=== PATIENT | female | born 1955 | race Caucasian/White ===

== ENCOUNTER → 2016-11-10 | Outpatient (CLI) | payer MEDICARE, OTHER ==
[2016-11-10 11:37] LABS: ALT 39 U/L (9-52); AST 18 U/L (14-36); Alkaline Phosphatase 76 U/L (38-126); Anion Gap 13 mmol/L; Blood Urea Nitrogen 14 mg/dL (7-17); Carbon Dioxide 26 mmol/L (22-30); Chloride 103 mmol/L (98-107); Cholesterol 293 mg/dL (<200); Glucose 246 mg/dL (74-99); HDL Cholesterol 53 mg/dL (40-60); Non-African American GFR(MDRD) >60 (>60 ml/min/1.73 sqM); Potassium 4.8 mmol/L (3.5-5.1); Sodium 142 mmol/L (137-145); Total Bilirubin 0.5 mg/dL (0.2-1.3); Total Protein 7.8 g/dL (6.3-8.2); Triglycerides 352 mg/dL (<150)
--- NOTE | 2016-11-10 12:12 | XR ---
EXAMINATION TYPE: XR chest 2V DATE OF EXAM: 11/10/2016 11:22 AM COMPARISON: Prior chest x-ray February 01, 2012. HISTORY: Annual wellness check (Z00.01) TECHNIQUE: Frontal and lateral views of the chest are obtained. FINDINGS: There is no focal air space opacity, pleural effusion, or pneumothorax seen. The cardiac silhouette size is within normal limits. The osseous structures are intact. Cholecystectomy clips a re noted on lateral view. IMPRESSION: No acute cardiopulmonary process. No significant change from prior.
[2016-11-10 14:21] LABS: CHCM 34.3; HCT 46.4 % (34.0-46.0); HDW 2.75; HGB 15.6 gm/dL (11.4-16.0); MCH 31.5 pg (25.0-35.0); MCHC 33.5 g/dL (31.0-37.0); MCV 93.8 fL (80.0-100.0); Mean Platelet Volume 7.4; RBC 4.95 m/uL (3.80-5.40); RDW 12.9 % (11.5-15.5)
[2016-11-10 14:44] LABS: Hemoglobin A1C 8.6 % (4.2-6.1)
== END | disposition home or self-care (01) ==
LOC: LABWHC1 10:35
PROVIDERS: ATTEND Internal Medicine
DX: Z00.01 Encounter for general adult medical examination with abnormal findings (principal); I11.9 Hypertensive heart disease without heart failure; E11.9 Type 2 diabetes mellitus without complications; E78.2 Mixed hyperlipidemia; K21.0 Gastro-esophageal reflux disease with esophagitis
CPT/HCPCS: 36415; 71020; 80053; 80061; 82043; 83036; 85027

== ENCOUNTER → 2017-02-01 | Outpatient (CLI) | payer MEDICARE, OTHER ==
[2017-02-01 11:47] LABS: Cholesterol 172 mg/dL (<200); Glucose 235 mg/dL (74-99); HDL Cholesterol 53 mg/dL (40-60); Triglycerides 217 mg/dL (<150)
[2017-02-01 12:10] LABS: Hemoglobin A1C 8.5 % (4.2-6.1)
== END | disposition home or self-care (01) ==
LOC: LABWHC1 11:09
PROVIDERS: ATTEND Internal Medicine
DX: E78.2 Mixed hyperlipidemia (principal); E11.9 Type 2 diabetes mellitus without complications
CPT/HCPCS: 36415; 80061; 82947; 83036

== ENCOUNTER → 2018-01-18 | Outpatient (CLI) | payer MEDICARE, OTHER ==
--- NOTE | 2018-01-18 12:01 | XR ---
EXAMINATION TYPE: XR chest 2V DATE OF EXAM: 01/18/2018 COMPARISON: November 10, 2016 HISTORY: Chest pain TECHNIQUE: Frontal and lateral views of the chest are obtained. FINDINGS: There is no focal air space opacity. No evidence for pneumothorax. No pleural effusion. The cardiac silhouette size is within normal limits. The osseous structures are grossly intact. IMPRESSION: 1. No acute cardiopulmonary process.
[2018-01-18 12:34] LABS: Albumin 4.4 g/dL (3.5-5.0); Calcium 9.7 mg/dL (8.4-10.2); Potassium 5.3 mmol/L (3.5-5.1); Total Bilirubin 0.3 mg/dL (0.2-1.3); Total Protein 6.9 g/dL (6.3-8.2)
[2018-01-18 12:48] LABS: T4, Free (Free Thyroxine) 1.13 ng/dL (0.78-2.19)
[2018-01-18 18:34] LABS: Hemoglobin A1C 10.2 % (4.0-6.0)
[2018-01-18 21:49] LABS: HCT 39.2 % (34.0-46.0); MCH 30.5 pg (25.0-35.0); MCHC 33.1 g/dL (31.0-37.0); MCV 92.1 fL (80.0-100.0); Mean Platelet Volume 8.1; Platelet Count 227 k/uL (150-450); RBC 4.25 m/uL (3.80-5.40); RDW 12.9 % (11.5-15.5); WBC 4.8 k/uL (3.8-10.6)
== END | disposition home or self-care (01) ==
LOC: LABWHC1 11:12
PROVIDERS: ATTEND Internal Medicine
DX: Z00.01 Encounter for general adult medical examination with abnormal findings (principal); E11.9 Type 2 diabetes mellitus without complications; I11.9 Hypertensive heart disease without heart failure; K21.0 Gastro-esophageal reflux disease with esophagitis; E78.2 Mixed hyperlipidemia
CPT/HCPCS: 36415; 71046; 80053; 80061; 82043; 82272; 82570; 83036; 84439; 84443; 85027

== ENCOUNTER → 2020-03-27 | Outpatient (CLI) | payer MEDICARE, OTHER ==
[2020-03-27 11:16] VITALS: BP 135/67; PULSE 62; RESP 20; TEMP 97.8
--- NOTE | 2020-03-27 11:59 | P.GSHP ---
History of Present Illness H&P Date: 03/27/20 Chief Complaint: Radiographic abnormality left breast Nellie is a 65 year old white female seen in consultation for Dr. Blanca for a radiographic abnormality in the left breast. The patient had a bilateral screening mammogram performed in October 2019 at [facility]. This revealed stable findings in the right breast, however diagnostic mammogram of the left breast was recommended. Diagnostic mammogram of the left breast was performed on . This resulted in the recommendation for an ultrasound of the left breast. The ultrasound of the left breast was then performed on the same day. On this there was noted to be a 1.2 cm lesion in the long axis of the lesion was parallel to the skin line and felt to be benign for which a short-term follow-up left breast mammogram and ultrasound was recommended. The patient herself does not feel any masses lumps nodules or pain in the breast. She is not complaining of any nipple discharge or skin changes. She is not complaining of any recent trauma or infection in the breast. She had a left breast open biopsy done about 35 years ago which was negative for cancer. Dianne 5 year risk of breast cancer 3.5% versus 1.9% life time risk: 14.2 % versus 8.3% caffeine: 2-3 cups/day nicotine: none Theophylline: Negative Hormones: Negative Family history: mother: breast cancer at 65 sister: cervical cancer maternal cousin: ovarian cancer maternal cousin: colon cancer Hormonal History: menarche: 15 age at first : 20, breast fed: none menopause: 47 BCP: 1 week hormones: none Surgical history: 1. Partial hysterectomy at 37, took uterus 2. tubaligation 3. knee right times 2 4. fingers trigger fingers 5 cyst on her left wrist 6. cataract surgery Medical History: DM Social History smoke: none alcohol: none' drugs: none - Constitutional Constitutional: Denies chills, Denies fever - EENT Comment: cataract surgery Ears: deny: decreased hearing, tinnitus Ears, nose, mouth and throat: Denies headache, Denies sore throat - Breasts Breasts: bilateral: as per HPI - Cardiovascular Cardiovascular: Denies chest pain, Denies shortness of breath - Respiratory Respiratory: Denies cough, Denies 7 - Gastrointestinal Gastrointestinal: Denies abdominal pain, Denies diarrhea, Denies nausea, Denies vomiting - Genitourinary (Female) Genitourinary: Denies dysuria, Denies hematuria - Menstruation Menstruation: Reports post hysterectomy, Reports postmenopausal - Musculoskeletal Musculoskeletal: Reports muscle cramps - Integumentary Integumentary: Denies pruritus, Denies rash - Neurological Neurological: Denies numbness, Denies weakness - Psychiatric Psychiatric: Reports depression - Endocrine Endocrine: Denies fatigue, Denies weight change - Hematologic/Lymphatic Comment: aspirin every morning - Allergic/Immunologic Comment: none Allergic/Immunologic: Reports as per HPI Past Medical History History of Any Multi-Drug Resistant Organisms: None Reported Smoking Status: Never smoker Medications and Allergies Home Medications Medication Instructions Recorded Confirmed Type Cyclobenzaprine [Flexeril] 10 mg PO BID 03/27/20 03/27/20 History Diclofenac Sodium [Voltaren] 75 mg PO BID 03/27/20 03/27/20 History Gabapentin [Neurontin] 400 mg PO TID 03/27/20 03/27/20 History Glimepiride [Amaryl] 2 mg PO AC-BRKFST 03/27/20 03/27/20 History HYDROcodone/APAP 7.5-325MG [Ridge 1 tab PO Q6HR PRN 03/27/20 03/27/20 History 7.5-325] Meloxicam 15 mg PO DAILY 03/27/20 03/27/20 History metFORMIN HCL [Glucophage] 500 mg PO DAILY 03/27/20 03/27/20 History Allergies Allergy/AdvReac Type Severity Reaction Status Date / Time No Known Allergies Allergy Unverified 03/27/20 11:16 Surgical - Exam Vital Signs Temp Pulse Resp BP Pulse Ox 97.8 F 62 20 135/67 97 03/27/20 11:12 03/27/20 11:12 03/27/20 11:12 03/27/20 11:12 03/27/20 11:12 BMI 36.6 - General obese - Eyes normal ocular movement - ENT no hearing loss, no congestion - Neck no masses, trachea midline - Respiratory normal expansion, normal respiratory effort, clear to auscultation - Cardiovascular Rhythm: regular Heart Sounds: normal: S1, S2 - Abdomen Abdomen: soft, non tender, bowel sounds, no guarding, no rigid, no rebound - Integumentary normal turgor - Neurologic no disoriented, no combative - Musculoskeletal normal gait, normal posture - Psychiatric oriented to time, oriented to person, oriented to place, speech is normal, memory intact breast exam: BRA 42C Inspection: Bilateral grade 3 ptosis, right breast larger than the left breast Palpation: Right breast: Multi-positional exam fibrocystic changes, no dominant masses or nodules of concern Right axilla: No adenopathy of concern Left breast: Multi-positional exam but were cystic changes, no dominant masses or nodules of concern nothing is palpable which would correspond to the ultrasound findings Left axilla: No adenopathy of concern Results Mammogram and ultrasound reports reviewed with DR. Harvey Assessment and Plan Assessment: Impression: 1. Radiographic abnormality left breast 2. Fibrocystic changes bilaterally 3. Diabetes 4. Family history of cancer 5. Dianne model risk analysis reveals increased risk of breast cancer; we have discussed chemo-prevention and at this time she has chosen not to do so Plan: 1. Repeat left breast mammogram and ultrasound in May 2020 2. Follow-up. After mammogram and ultrasound performed 3. Follow up sooner if any questions or concerns 4. Patient was given option is seen medical oncology regarding increased risk of breast cancer/at this time she has chosen not to do so CC: Dr. Blanca encounter 60 minutes, > 50% of time in planning and counselling
== END | disposition home or self-care (01) ==
LOC: WWCWWP 10:58
PROVIDERS: ATTEND Surgery
DX: Z53.9 Procedure and treatment not carried out, unspecified reason (principal)

== ENCOUNTER → 2020-06-12 | Outpatient (CLI) | payer MEDICARE, OTHER ==
--- NOTE | 2020-06-12 16:07 | P.PN ---
Progress Note - Text Progress Note Date: 06/12/20 We did not have the patient's films nor her report, she is coming for radiographic results. Appointment is therefore canceled to obtain the x-rays and the report is going to be rescheduled.
== END | disposition home or self-care (01) ==
LOC: WWCWWP 15:17
PROVIDERS: ATTEND Surgery
DX: Z53.9 Procedure and treatment not carried out, unspecified reason (principal)

== ENCOUNTER → 2020-07-10 | Outpatient (CLI) | payer MEDICARE, OTHER ==
[2020-07-10 14:00] VITALS: BP 137/79; PULSE 58; RESP 12; TEMP 97.5
--- NOTE | 2020-07-10 14:14 | P.PN ---
Subjective Progress Note Date: 07/10/20 Principal diagnosis: abnormal left breast mammogram Nellie is a 65 year old white female seen in consultation for Dr. Blanca on 03-27-20 for a radiographic abnormality in the left breast. The patient had a bilateral screening mammogram performed in October 2019 at [facility]. This revealed stable findings in the right breast, however diagnostic mammogram of the left breast was recommended. Diagnostic mammogram of the left breast was performed on . This resulted in the recommendation for an ultrasound of the left breast. The ultrasound of the left breast was then performed on the same day. On this there was noted to be a 1.2 cm lesion in the long axis of the lesion was parallel to the skin line and felt to be benign for which a short-term follow-up left breast mammogram and ultrasound was recommended. The patient herself does not feel any masses lumps nodules or pain in the breast. She is not complaining of any nipple discharge or skin changes. She is not complaining of any recent trauma or infection in the breast. She had a left breast open biopsy done about 35 years ago which was negative for cancer. Patient had a bilateral repeat mammogram in . This was felt to be benign finding normal interval follow-up. Although was recommended she have an ultrasound of the left breast as well this was not yet performed and this will be ordered today. The patient does state that she has some intermittent left upper outer quadrant breast discomfort. This is occasional. She states is better if she lays still. It does not radiate anyplace. She states that the pain is dull in nature. It only lasts for 1-2 minutes. It occurs about every other week. Dianne 5 year risk of breast cancer 3.5% versus 1.9% life time risk: 14.2 % versus 8.3% caffeine: 2-3 cups/day; no change in amount drinking from last visit nicotine: none Theophylline: Negative Hormones: Negative Family history: mother: breast cancer at 65 sister: cervical cancer maternal cousin: ovarian cancer maternal cousin: colon cancer Hormonal History: menarche: 15 age at first : 20, breast fed: none menopause: 47 BCP: 1 week hormones: none Surgical history: 1. Partial hysterectomy at 37, took uterus 2. tubaligation 3. knee right times 2 4. fingers trigger fingers 5 cyst on her left wrist 6. cataract surgery Medical History: DM Social History smoke: none alcohol: none' drugs: none - Constitutional Constitutional: Denies chills, Denies fever - EENT Comment: cataract surgery Ears: deny: decreased hearing, tinnitus Ears, nose, mouth and throat: Denies headache, Denies sore throat - Breasts Breasts: bilateral: as per HPI - Cardiovascular Cardiovascular: Denies chest pain, Denies shortness of breath - Respiratory Respiratory: Denies cough - Gastrointestinal Gastrointestinal: Denies abdominal pain, Denies diarrhea, Denies nausea, Denies vomiting - Genitourinary (Female) Genitourinary: Denies dysuria, Denies hematuria - Menstruation Menstruation: Reports post hysterectomy, Reports postmenopausal - Musculoskeletal Musculoskeletal: Reports muscle cramps - Integumentary Integumentary: Denies pruritus, Denies rash - Neurological Neurological: Denies numbness, Denies weakness - Psychiatric Psychiatric: Reports depression - Endocrine Endocrine: Denies fatigue, Denies weight change - Hematologic/Lymphatic Comment: aspirin every morning - Allergic/Immunologic Comment: none Allergic/Immunologic: Reports as per HPI Objective - Vital Signs Vital signs: Vital Signs Temp 97.5 F L 07/10/20 13:56 Pulse 58 L 07/10/20 13:56 Resp 12 07/10/20 13:56 BP 137/79 07/10/20 13:56 Pulse Ox 97 07/10/20 13:56 Intake & Output 07/09/20 07/10/20 07/10/20 18:59 06:59 18:59 Weight 104.78 kg - Exam BMI 36.2 - Constitutional General appearance: Present: obese - EENT Eyes: Present: EOMI ENT: Present: hearing grossly normal - Neck Neck: Present: normal ROM - Respiratory Respiratory: bilateral: CTA - Cardiovascular Rhythm: regular Heart sounds: normal: S1, S2 - Gastrointestinal General gastrointestinal: Present: soft - Integumentary Integumentary: Present: normal turgor - Musculoskeletal Musculoskeletal: Present: gait normal - Psychiatric Psychiatric: Present: A&O x's 3, appropriate affect, intact judgment & insight - Additional findings Additional findings: breast exam: BRA 42C inspection: Bilateral grade 3 ptosis Palpation: Right breast: Multi-positional exam fibrocystic changes, no dominant masses or nodules of concern Right axilla: No adenopathy of concern Left breast: Multi-positional exam no dominant masses or nodules of concern Left axilla: No adenopathy of concern Assessment and Plan Assessment: Impression: 1. Fibrocystic breast changes 2. Recent bilateral mammogram benign BIRADS 2 3. Patient recommended to have a left breast ultrasound as well 4. History of diabetes 5. Intermittent mastodynia left breast upper outer quadrant area Plan: 1. Left breast ultrasound follow-up for results of this 2. Again discussed Doppler in the caffeine which may improve fibrocystic breast changes 3. Medical management of diabetes CC: DR. Blanca encounter 15 minutes, > 50% of time in planning and counselling
== END | disposition home or self-care (01) ==
LOC: WWCWWP 13:13
PROVIDERS: ATTEND Surgery
DX: Z53.9 Procedure and treatment not carried out, unspecified reason (principal)

== ENCOUNTER → 2020-07-28 | Outpatient (CLI) | payer MEDICARE, OTHER ==
--- NOTE | 2020-07-29 08:29 | USB ---
Reason for exam: additional evaluation requested from prior study. History: Family history of breast cancer in mother. Benign excisional biopsy of the left breast, 1994. Physical Findings: Nurse did not find any significant physical abnormalities on exam. US Breast LT Prior study comparison: November 19, 2019, left breast ultrasound, performed at [facility]. Left complete breast ultrasound includes all four quadrants, the retroareolar region and axilla. Finding demonstrates a 1.4 x 1.2 x 0.8cm oval, cystic, hypoechoic lesion at 1 o'clock, probable thin walled cyst. No change from outside ultrasound. These results were verbally communicated with the patient and result sheet given to the patient on 07/28/20. ASSESSMENT: Benign, BI-RAD 2 RECOMMENDATION: Routine screening mammogram of both breasts in 10 months. Back on schedule for May 2021.
== END | disposition home or self-care (01) ==
LOC: RADUSWWP 14:01
PROVIDERS: ATTEND Surgery
DX: R92.8 Other abnormal and inconclusive findings on diagnostic imaging of breast (principal)

== ENCOUNTER → 2020-07-31 | Outpatient (CLI) | payer MEDICARE, OTHER ==
[2020-07-31 14:58] VITALS: BP 148/69; PULSE 61; RESP 18; TEMP 98.1
--- NOTE | 2020-07-31 15:46 | P.PN ---
Subjective Progress Note Date: 07/31/20 Principal diagnosis: ultrasound results abnormal left breast mammogram Nellie is a 65 year old white female seen in consultation for Dr. Blanca on 03-27-20 for a radiographic abnormality in the left breast. The patient had a bilateral screening mammogram performed in October 2019 at [facility]. This revealed stable findings in the right breast, however diagnostic mammogram of the left breast was recommended. Diagnostic mammogram of the left breast was performed on . This resulted in the recommendation for an ultrasound of the left breast. The ultrasound of the left breast was then performed on the same day. On this there was noted to be a 1.2 cm lesion in the long axis of the lesion was parallel to the skin line and felt to be benign for which a short-term follow-up left breast mammogram and ultrasound was recommended. The patient herself does not feel any masses lumps nodules or pain in the breast. She is not complaining of any nipple discharge or skin changes. She is not complaining of any recent trauma or infection in the breast. She had a left breast open biopsy done about 35 years ago which was negative for cancer. [place] [id number]. This was felt to be benign finding normal interval follow-up. An ultrasound of the left breast was recommended and was performed on . This revealed a 1.4 cm cystic hypoechoic lesion at 1:00 probable thin-walled cyst. No change from outside ultrasound. This was felt to be benign BIRADS 2. Routine screening mammogram of both breasts in 10 months was recommended. She does not feel any lumps masses or nodules in her breast at this time. Dianne 5 year risk of breast cancer 3.5% versus 1.9% life time risk: 14.2 % versus 8.3% caffeine: 2-3 cups/day; no change in amount drinking from last visit nicotine: none Theophylline: Negative Hormones: Negative Family history: mother: breast cancer at 65 sister: cervical cancer maternal cousin: ovarian cancer maternal cousin: colon cancer Hormonal History: menarche: 15 age at first : 20, breast fed: none menopause: 47 BCP: 1 week hormones: none Surgical history: 1. Partial hysterectomy at 37, took uterus 2. tubaligation 3. knee right times 2 4. fingers trigger fingers 5 cyst on her left wrist 6. cataract surgery Medical History: DM Social History smoke: none alcohol: none' drugs: none - Constitutional Constitutional: Denies chills, Denies fever - EENT Comment: cataract surgery Ears: deny: decreased hearing, tinnitus Ears, nose, mouth and throat: Denies headache, Denies sore throat - Breasts Breasts: bilateral: as per HPI - Cardiovascular Cardiovascular: Denies chest pain, Denies shortness of breath - Respiratory Respiratory: Denies cough - Gastrointestinal Gastrointestinal: Denies abdominal pain, Denies diarrhea, Denies nausea, Denies vomiting - Genitourinary (Female) Genitourinary: Denies dysuria, Denies hematuria - Menstruation Menstruation: Reports post hysterectomy, Reports postmenopausal - Musculoskeletal Musculoskeletal: Reports muscle cramps - Integumentary Integumentary: Denies pruritus, Denies rash - Neurological Neurological: Denies numbness, Denies weakness - Psychiatric Psychiatric: Reports depression - Endocrine Endocrine: Denies fatigue, Denies weight change - Hematologic/Lymphatic Comment: aspirin every morning Objective - Vital Signs Vital signs: Vital Signs Temp 98.1 F 07/31/20 14:56 Pulse 61 07/31/20 14:56 Resp 18 07/31/20 14:56 BP 148/69 07/31/20 14:56 Pulse Ox 97 07/31/20 14:56 Intake & Output 07/30/20 07/31/20 07/31/20 18:59 06:59 18:59 Weight 106.594 kg - [place]am [place] [id number], it is not repeated today Assessment and Plan Assessment: Impression: 1. Fibrocystic breast changes 2. Recent bilateral mammogram benign BIRADS 2, left breast ultrasound on 1020 720 benign BIRADS 2 with cystic changes 3. History of diabetes 4. Intermittent mastodynia left breast Plan: 1. Bilateral mammogram in 10 months with physician exam at that time
== END | disposition home or self-care (01) ==
LOC: WWCWWP 14:09
PROVIDERS: ATTEND Surgery
DX: Z53.9 Procedure and treatment not carried out, unspecified reason (principal)

== ENCOUNTER → 2021-07-23 | Outpatient (CLI) | payer MEDICARE, OTHER ==
[2021-07-23 16:23] VITALS: BP 161/87; PULSE 63; RESP 18; TEMP 97.8
--- NOTE | 2021-07-23 16:25 | P.PN ---
Subjective Progress Note Date: 07/23/21 Principal diagnosis: fibrocystic breast disease Nellie is a 66 year old white female seen in consultation for Dr. Blanca for a radiographic abnormality in the left breast. The patient had a bilateral screening mammogram performed in October 2019 at [facility]. This revealed stable findings in the right breast, however diagnostic mammogram of the left breast was recommended. Diagnostic mammogram of the left breast was performed on . This resulted in the recommendation for an ultrasound of the left breast. The ultrasound of the left breast was then performed on the same day. On this there was noted to be a 1.2 cm lesion in the long axis of the lesion was parallel to the skin line and felt to be benign for which a short-term follow-up left breast mammogram and ultrasound was recommended. Her most recent mammogram was at [facility] on [id number] this was benign BIRADS 2. The patient herself does not feel any masses lumps nodules or pain in the breast. She is not complaining of any nipple discharge or skin changes. She is not complaining of any recent trauma or infection in the breast. She had a left breast open biopsy done about 35 years ago which was negative for cancer. Dianne 5 year risk of breast cancer 3.5% versus 1.9% life time risk: 14.2 % versus 8.3% caffeine: 2-3 cups/day nicotine: none chocolate: occasional Hormones: Negative Family history: mother: breast cancer at 65 sister: cervical cancer maternal cousin: ovarian cancer maternal cousin: colon cancer Hormonal History: menarche: 15 age at first : 20, breast fed: none menopause: 47 BCP: 1 week hormones: none Surgical history: 1. Partial hysterectomy at 37, took uterus 2. tubaligation 3. knee right times 2 4. fingers trigger fingers 5 cyst on her left wrist 6. cataract surgery Medical History: DM Social History smoke: none alcohol: none' drugs: none - Constitutional Constitutional: Denies chills, Denies fever - EENT Comment: cataract surgery Ears: deny: decreased hearing, tinnitus Ears, nose, mouth and throat: Denies headache, Denies sore throat - Breasts Breasts: bilateral: as per HPI - Cardiovascular Cardiovascular: Denies chest pain, Denies shortness of breath - Respiratory Respiratory: Denies cough - Gastrointestinal Gastrointestinal: Denies abdominal pain, Denies diarrhea, Denies nausea, Denies vomiting - Genitourinary (Female) Genitourinary: Denies dysuria, Denies hematuria - Menstruation Menstruation: Reports post hysterectomy, Reports postmenopausal - Musculoskeletal Musculoskeletal: Reports muscle cramps - Integumentary Integumentary: Denies pruritus, Denies rash - Neurological Neurological: Denies numbness, Denies weakness - Psychiatric Psychiatric: Reports depression - Endocrine Endocrine: Denies fatigue, Denies weight change - Hematologic/Lymphatic Comment: aspirin every morning - Allergic/Immunologic Comment: none Allergic/Immunologic: Reports as per HPI Objective - Constitutional General appearance: Present: cooperative - EENT Eyes: Present: EOMI ENT: Present: hearing grossly normal - Neck Neck: Present: normal ROM - Respiratory Respiratory: bilateral: CTA - Cardiovascular Heart sounds: normal: S1, S2 - Gastrointestinal General gastrointestinal: Present: soft - Integumentary Integumentary: Present: normal turgor - Musculoskeletal Musculoskeletal: Present: gait normal - Psychiatric Psychiatric: Present: A&O x's 3, appropriate affect, intact judgment & insight - Additional findings Additional findings: Breast Exam: BRA: 42C inspection: Bilateral grade 3 ptosis Palpation: Right breast: Multi-positional exam fibrocystic changes no dominant masses or nodules of concern Right axilla: No adenopathy of concern Left breast: Multi-positional exam fibrocystic changes no dominant masses or nodules of concern Left axilla: No adenopathy of concern Assessment and Plan Assessment: Impression: Fibrocystic breast changes bilateral Positive family history of cancer Benign BIRADS 2 [place] [id number] Plan: Repeat bilateral mammogram in 1 year with physician exam at that time
== END ==
LOC: WWCWWP 16:13
PROVIDERS: ATTEND Surgery
DX: N60.11 Diffuse cystic mastopathy of right breast (principal); N60.12 Diffuse cystic mastopathy of left breast; E11.9 Type 2 diabetes mellitus without complications; Z80.3 Family history of malignant neoplasm of breast

== ENCOUNTER → 2022-07-14 | Outpatient (CLI) | payer MEDICARE, OTHER ==
--- NOTE | 2022-07-14 19:24 | BD ---
EXAMINATION TYPE: Axial Bone Density DATE OF EXAM: 07/14/2022 COMPARISON: NONE CLINICAL HISTORY: 67 year old Female. ICD-10 CODE: Z13.820 screening M85.80 other bone disorder Height: 65 Weight: 213.4 FRAX RISK QUESTIONS: Alcohol (3 or more units per day): no Family History (Parent hip fracture): no Glucocorticoids (More than 3mos): no (Ex: prednisone, prednisolone, methylprednisolone, dexamethasone, and hydrocortisone). History of Fracture in Adulthood: yes Secondary Osteoporosis: 1. Type 1 Diabetes: no 2. Hyperthyroidism: no 3. Menopause before 45: no 4. Malnutrition: no 5. Chronic liver disease: no Rheumatoid Arthritis: yes Current Tobacco Use: no RISK FACTORS HISTORY OF: History of Wrist Fracture: right wrist When: as a child Surgery to Spine/Hip(right/left)/Wrist (right/left): no Family History of Osteoporosis: yes Active: no Diet low in dairy products/other sources of calcium: yes Postmenopausal woman: yes Lost more than 2 inches in height since high school: yes MEDICATIONS: Additional History: EXAM MEASUREMENTS: Bone mineral densitometry was performed using the VSoft System. Bone mineral density as measured about the Lumbar spine is: ----- L1-L4(G/cm2): 1.074 T Score Values are as follows: ----- L1: -2.1 ----- L2: -1.2 ----- L3: -0.5 ----- L4: 0.0 ----- L1-L4: -0.9 Bone mineral density : baseline Bone mineral density about the R hip (g/cm2): 0.737 Bone mineral density about the L hip (g/cm2): 0.805 T Score values are as follows: -----R Neck: -2.2 -----L Neck: -1.7 -----R Total: -1.7 -----L Total: -1.4 Bone mineral density : baseline FRAX%s: The graph provided illustrates a 22.3% chance for a major osteoporotic fx and a 4.1% chance f or the hips probability for fx in 10 years time. IMPRESSION: Osteopenia (T Score between -2.5 and -1). There is slightly increased risk of fracture and the patient may be considered for treatment. Re-Screen 2-5 years. NOTE: T-SCORE=SD OF THE YOUNG ADULT MEAN.
== END | disposition home or self-care (01) ==
LOC: RADBDWWP 12:08
PROVIDERS: ATTEND Obstetrics & Gynecology
DX: M85.89 Other specified disorders of bone density and structure, multiple sites (principal); Z78.0 Asymptomatic menopausal state
CPT/HCPCS: 77080

== ENCOUNTER → 2022-07-14 | Outpatient (CLI) | payer MEDICARE, OTHER ==
--- NOTE | 2022-07-15 11:33 | MM ---
Reason for Exam: Screening (asymptomatic). Last mammogram was performed 2 year(s) and 2 month(s) ago. Patient History: Menarche at age 15. First Full-Term at age 19. Postmenopausal. 1994, Benign Excisional Biopsy on the left side. Mother had breast cancer under age 50. Risk Values: Dianne 5 year model risk: 3.6%. NCI Lifetime model risk: 13.3%. Prior Study Comparison: 07/24/2018 Screening Mammogram, [facility]. 10/16/2019 Screening Mammogram, [facility]. 11/19/2019 Screening Mammogram, [facility]. 05/21/2020 Screening Mammogram, [facility]. Tissue Density: The breast tissue is heterogeneously dense. This may lower the sensitivity of mammography. Findings: Analyzed By CAD. Asymmetric density superior right MLO view middle to posterior depth is more defined and persists on 3 images. Possible superimposition shadow but further evaluation is recommended. Asymmetric density central outer right cc view middle to posterior depth suspected superimposition shadow as it is not as well-seen on the laterally exaggerated CC view. This area can also be further evaluated. Subtle areas of low density to isodense nodularity in both breasts remain unchanged. Low axillary tail lymph node on the left remains unchanged. Overall Assessment: Incomplete: need additional imaging evaluation, BI-RAD 0 Management: Special View Mammogram of the right breast. Diagnostic Breast Ultrasound of the right breast. Special views to include spot 3-D CC, 3-D CC rolled medial, spot 3-D MLO, and 3-D ML views. Targeted ultrasound upper outer quadrant right breast. [facility] will attempt to contact patient to return for supplemental views and ultrasound if indicated. Electronically signed and approved by: Rahul De Los Santos M.D. Radiologist
== END | disposition home or self-care (01) ==
LOC: RADMAMWWP 12:10
PROVIDERS: ATTEND Surgery
DX: Z12.31 Encounter for screening mammogram for malignant neoplasm of breast (principal); Z78.0 Asymptomatic menopausal state; Z80.3 Family history of malignant neoplasm of breast
CPT/HCPCS: 77063; 77067

== ENCOUNTER → 2022-07-21 | Outpatient (CLI) | payer MEDICARE, OTHER ==
--- NOTE | 2022-07-21 13:57 | MM ---
Reason for Exam: Additional evaluation requested from abnormal screening. Last screening mammogram was performed less than 1 month ago. Patient History: Menarche at age 15. First Full-Term at age 19. Postmenopausal. 1994, Benign Excisional Biopsy on the left side. Mother had breast cancer under age 50. Risk Values: Dianne 5 year model risk: 3.6%. NCI Lifetime model risk: 13.3%. Tissue Density: Right: The breast tissue is heterogeneously dense. This may lower the sensitivity of mammography. Findings: Analyzed By CAD. No distinct new lesion definitively persists on additional views. Background dense tissue at this level is noted. Overall Assessment: Incomplete: need additional imaging evaluation, BI-RAD 0 Management: Diagnostic Breast Ultrasound of the right breast. Targeted ultrasound evaluation right breast. Electronically signed and approved by: Jasmeet Lipscomb M.D.
--- NOTE | 2022-07-21 14:46 | USB ---
Reason for Exam: Additional evaluation requested from abnormal screening. Patient History: Menarche at age 15. First Full-Term at age 19. Postmenopausal. 1994, Benign Excisional Biopsy on the left side. Mother had breast cancer under age 50. Risk Values: Dianne 5 year model risk: 3.6%. NCI Lifetime model risk: 13.3%. Technique: Method: Targeted. Prior Study Comparison: 11/19/2019 Screening Mammogram, [facility]. 05/21/2020 Screening Mammogram, [facility]. 07/14/2022 Bilateral MG 3D screening mammo w/cad, [facility]. Findings: The upper outer quadrant of the right breast, the axilla of the right breast and the retroareolar of the right breast were scanned. Targeted ultrasound shows 4 x 2 x 4 mm simple appearing thin-walled cyst 12:00 position 8 cm distance from nipple. Overall Assessment: Benign, BI-RAD 2 Management: Screening Mammogram of both breasts in 1 year. Return to routine follow-up. ??Results were given to the patient verbally at the time of exam. Electronically signed and approved by: Jasmeet Lipscomb M.D.
== END | disposition home or self-care (01) ==
LOC: RADMAMWWP 13:27
PROVIDERS: ATTEND Surgery
DX: R92.8 Other abnormal and inconclusive findings on diagnostic imaging of breast (principal); Z78.0 Asymptomatic menopausal state; Z80.3 Family history of malignant neoplasm of breast; Z98.890 Other specified postprocedural states
CPT/HCPCS: 77065; 76642; G0279; 77061

== ENCOUNTER → 2022-08-11 | Outpatient (CLI) | payer MEDICARE, OTHER ==
[2022-08-11 13:44] VITALS: BP 135/83; PULSE 58; RESP 16; TEMP 98.2
--- NOTE | 2022-08-11 14:38 | P.PN ---
Subjective Progress Note Date: 08/11/22 Principal diagnosis: fibrocystic breast disease fibrocystic breast disease Nellie is a 67 year old white female seen in consultation for Dr. Blanca for a radiographic abnormality in the left breast. The patient had a bilateral screening mammogram performed in October 2019 at [facility]. This revealed stable findings in the right breast, however diagnostic mammogram of the left breast was recommended. Diagnostic mammogram of the left breast was performed on . This resulted in the recommendation for an ultrasound of the left breast. The ultrasound of the left breast was then performed on the same day. On this there was noted to be a 1.2 cm lesion in the long axis of the lesion was parallel to the skin line and felt to be benign for which a short-term follow-up left breast mammogram and ultrasound was recommended. Follow up on 06-09-21 at [facility] was benign BIRAD 2. On 07-14-22 the patient had a bilateral screening mammogram performed. This was felt to be inconclusive with recommendation of a right breast mammogram and ultrasound. Following the diagnostic mammogram and targeted ultrasound was recommended. This revealed a 4 x 4 millimeter simple appearing cyst was felt to be benign BIRADS 2 and screening mammogram of both breasts in 1 year was recommended. The patient herself does not feel any masses lumps nodules or pain in the breast. She is not complaining of any nipple discharge or skin changes. She is not complaining of any recent trauma or infection in the breast. She had a left breast open biopsy done about 35 years ago which was negative for cancer. Dianne 5 year risk of breast cancer 3.6% I have counseled the patient regarding chemoprevention and at this time she has declined. caffeine: 2-3 cups/day nicotine: none chocolate: occasional Hormones: Negative Family history: mother: breast cancer at 65 sister: cervical cancer maternal cousin: ovarian cancer maternal cousin: colon cancer Hormonal History: menarche: 15 age at first : 20, breast fed: none menopause: 47 BCP: 1 week hormones: none Surgical history: 1. Partial hysterectomy at 37, took uterus 2. tubaligation 3. knee right times 2 4. fingers trigger fingers 5 cyst on her left wrist 6. cataract surgery Medical History: DM Social History smoke: none alcohol: none' drugs: none - Constitutional Constitutional: Denies chills, Denies fever - EENT Comment: cataract surgery Ears: deny: decreased hearing, tinnitus Ears, nose, mouth and throat: Denies headache, Denies sore throat - Breasts Breasts: bilateral: as per HPI - Cardiovascular Cardiovascular: Denies chest pain, Denies shortness of breath - Respiratory Respiratory: Denies cough - Gastrointestinal Gastrointestinal: Denies abdominal pain, Denies diarrhea, Denies nausea, Denies vomiting - Genitourinary (Female) Genitourinary: Denies dysuria, Denies hematuria - Menstruation Menstruation: Reports post hysterectomy, Reports postmenopausal - Musculoskeletal Musculoskeletal: Reports muscle cramps - Integumentary Integumentary: Denies pruritus, Denies rash - Neurological Neurological: Denies numbness, Denies weakness - Psychiatric Psychiatric: Reports depression - Endocrine Endocrine: Denies fatigue, Denies weight change - Hematologic/Lymphatic Comment: aspirin every morning - Allergic/Immunologic Comment: none Allergic/Immunologic: Reports as per HPI Objective - Vital Signs Vital signs: Vital Signs Temp 98.2 F 08/11/22 13:40 Pulse 58 L 08/11/22 13:40 Resp 16 08/11/22 13:40 BP 135/83 08/11/22 13:40 Pulse Ox 98 08/11/22 13:40 FiO2 Intake & Output 08/10/22 08/11/22 08/11/22 18:59 06:59 18:59 Weight 97.522 kg - Constitutional General appearance: Present: cooperative - EENT Eyes: Present: EOMI ENT: Present: hearing grossly normal - Neck Neck: Present: normal ROM - Respiratory Respiratory: bilateral: CTA - Cardiovascular Rhythm: regular Heart sounds: normal: S1, S2 - Gastrointestinal General gastrointestinal: Present: soft - Integumentary Integumentary: Present: normal turgor - Musculoskeletal Musculoskeletal: Present: gait normal - Psychiatric Psychiatric: Present: A&O x's 3, appropriate affect, intact judgment & insight - Additional findings Additional findings: Breast Exam: BRA: 42C inspection: grade 3 ptosis palpation: right breast: Multi-positional exam fibrocystic changes no dominant masses or nodules of concern Right axilla: No adenopathy of concern Left breast: Multi-positional exam fibrocystic changes, no dominant masses or nodules of concern Left axilla: No adenopathy of concern Assessment and Plan Assessment: Impression: Fibrocystic breast changes Dianne risk 5 year risk breast cancer 3.6%/patient declined chemoprevention Plan: Bilateral mammogram in 1 year with physician exam at that time Patient is noted to have osteopenia by report and is going to follow with Dr. Fredis Blanca with respect to this Cc: Dr. Mcneal, Dr. Blanca
== END | disposition home or self-care (01) ==
LOC: WWCWWP 13:08
PROVIDERS: ATTEND Surgery
DX: Z53.9 Procedure and treatment not carried out, unspecified reason (principal)

== ENCOUNTER → 2023-03-14 | Outpatient (CLI) | payer MEDICARE, OTHER ==
--- NOTE | 2023-03-14 18:18 | CT ---
EXAMINATION TYPE: CT lumbar spine wo con CT DLP: 991 mGycm, Automated exposure control for dose reduction was used. DATE OF EXAM: 03/14/2023 3:20 PM COMPARISON: Lumbar spine radiograph 03/08/2023, MRI lumbar spine 11/01/2012.. CLINICAL INDICATION:Female, 68 years old with history of M48.061 SPINAL STENOSIS, LUMBAR REGION; PHH, Lumbar stenosis. TECHNIQUE: Multiple axial images were obtained from the midportion of T11 through the sacroiliac shandra nts. Soft tissue and bone windows in coronal and sagittal planes were obtained and reviewed. FINDINGS: Alignment: There are 5 lumbar type vertebral bodies. Levoscoliotic curvature with apex at L2. Mild re trolisthesis of L1 on L2 and L2 on L3. Bone: No evidence of fracture is identified. Discs: Multilevel degenerative disc disease with disc space narrowing, endplate sclerosis, vacuum dis c disease, and anterior osteophytosis. T12-L1: Eccentric left disc bulge without significant central canal stenosis. The neural foramen are patent bilaterally. L1-L2: Retrolisthesis. Broad-based disc bulge with facet arthropathy resulting in mild to moderate ce ntral canal stenosis. Mild bilateral neural foraminal stenosis. L2-L3: Retrolisthesis. Broad-based disc bulge with facet arthropathy contributing to mild central can al stenosis. Moderate to severe right neural foraminal stenosis. The left neural foramen is patent. L3-L4: Broad-based disc bulge with facet arthropathy contributing to minimal central canal stenosis. Mild to moderate right neural foraminal stenosis. The left neural foramen is patent. L4-L5: Broad-based disc bulge with facet arthropathy and ligamentum flavum buckling contributing to mild central canal stenosis. Moderate left neural foraminal stenosis. The right neural foramen is pat ent. L5-S1: Central disc protrusion with pneumorrhacis and mild effacement of anterior thecal sac. Bilater al facet arthropathy. Mild bilateral neural foraminal stenosis. Other: Postcholecystectomy changes. IMPRESSION: 1. L5-S1 central disc herniation with mild central canal stenosis. 2. Multilevel degenerative disease and facet arthropathy with varying degrees of central canal stenos is. This is most pronounced at L1-L2 and L2-L3 secondary to retrolisthesis and broad-based disc bulge s as described above.
== END | disposition home or self-care (01) ==
LOC: RADCTMAIN 15:01
PROVIDERS: ATTEND Orthopaedic Surgery
DX: M51.36 Other intervertebral disc degeneration, lumbar region (principal); M48.061 Spinal stenosis, lumbar region without neurogenic claudication; M51.26 Other intervertebral disc displacement, lumbar region; M47.816 Spondylosis without myelopathy or radiculopathy, lumbar region; M43.16 Spondylolisthesis, lumbar region
CPT/HCPCS: 72131

== ENCOUNTER → 2023-06-20 | Outpatient (CLI) | payer MEDICARE, OTHER ==
--- NOTE | 2023-06-20 09:01 | CT ---
EXAMINATION TYPE: CT thoracic spine wo con DATE OF EXAM: 06/20/2023 COMPARISON: None HISTORY: thoracic pain CT DLP: 976.1 mGycm Automated exposure control for dose reduction was used. FINDINGS: The thoracic vertebral segments are normal in height and alignment and there is no fracture subluxati on. There is mild degenerative disc disease in the mid thoracic spine were there is mild disc space narro wing and spondylosis. There is suggestion of a small There is no thoracic spinal stenosis. The paraspinal soft tissues unremarkable. Disc protrusion at the T8-9 disc to the right of midline. IMPRESSION: 1. MILD DEGENERATIVE DISC DISEASE IN THE MIDTHORACIC SPINE. 2. SMALL DISC PROTRUSION AT THE T8-9 DISC ON THE RIGHT. 3. THORACIC VERTEBRAL SEGMENTS ARE NORMAL IN HEIGHT AND ALIGNMENT. 4. NO THORACIC SPINAL STENOSIS.
== END | disposition home or self-care (01) ==
LOC: RADCTMAIN 06:30
PROVIDERS: ATTEND Orthopaedic Surgery
DX: M51.34 Other intervertebral disc degeneration, thoracic region (principal); M51.24 Other intervertebral disc displacement, thoracic region
CPT/HCPCS: 72128

== ENCOUNTER → 2024-02-22 | Outpatient (CLI) | payer MEDICARE, OTHER ==
--- NOTE | 2024-02-22 11:43 | MM ---
Reason for Exam: Additional evaluation requested from prior study. Last mammogram was performed 1 year(s) and 7 month(s) ago. Patient History: Menarche at age 15. First Full-Term at age 19. Hysterectomy at age 40. Postmenopausal. 1994, Benign Excisional Biopsy on the left side. Mother had breast cancer under age 50. Sister had ovarian cancer at or over age 50. Risk Values: Dianne 5 year model risk: 3.7%. NCI Lifetime model risk: 12.3%. Prior Study Comparison: 07/24/2018 Screening Mammogram, [facility]. 10/16/2019 Screening Mammogram, [facility]. 11/19/2019 Screening Mammogram, [facility]. 05/21/2020 Screening Mammogram, [facility]. 07/14/2022 Bilateral MG 3D screening mammo w/cad, [facility]. 07/21/2022 Right MG 3D work up w/cad RT, [facility]. Tissue Density: The breasts are heterogeneously dense, which may obscure small masses. Findings: Analyzed By CAD. There is a new segmental density in the posterior left breast. Multiple punctate calcifications are associated with this area. Findings are new from comparison 07/14/2022. Stereotactic core biopsy is recommended. Right breast:No suspicious groups of microcalcifications, spiculated or lobular masses, architectural distortion or other secondary signs of malignancy are mammographically apparent. Overall Assessment: Highly suggestive of malignancy, BI-RAD 5 Management: Stereotactic Core Biopsy of the left breast. Surgical Consultation of the left breast. A negative mammogram report should not preclude additional follow up of suspicious palpable abnormalities. Patient should continue monthly self breast exam. A clinical breast exam by your physician is recommended on an annual basis and results should be correlated with mammographic findings. Note on Dianne scores and lifetime risk: 1. A Dianne score greater than 3% is considered moderate risk. If this is the case, consider specialist referral to assess eligibility for a risk reducing agent. 2. If overall lifetime risk for the development of breast cancer is 20% or higher, the patient may qualify for future screening with alternating mammogram and breast MRI. Electronically signed and approved by: Wallace Cervantes D.O. Radiologis
== END | disposition home or self-care (01) ==
LOC: RADMAMWWP 10:15
PROVIDERS: ATTEND Surgery
DX: R92.333 Mammographic heterogeneous density, bilateral breasts (principal); Z78.0 Asymptomatic menopausal state; Z80.3 Family history of malignant neoplasm of breast
CPT/HCPCS: 77066; G0279; 77062

== ENCOUNTER → 2024-03-07 | Day surgery (SDC) | payer MEDICARE, OTHER ==
[~2024-03-07] MED LIST: ALPRAZolam 0.25 MG TAB PO PRN; ALPRAZolam 0.5 MG TAB PO PRN
[2024-03-07 10:14] VITALS: BP 114/76; PULSE 64; RESP 16; TEMP 97.7
== END ==
LOC: RADMAMWWP 09:48
PROVIDERS: ATTEND Surgery
DX: R92.8 Other abnormal and inconclusive findings on diagnostic imaging of breast (principal); Z78.0 Asymptomatic menopausal state
CPT/HCPCS: 77065

== ENCOUNTER → 2024-03-07 | Day surgery (SDC) | payer MEDICARE, OTHER ==
--- NOTE | 2024-03-11 14:07 | USB ---
Patient History: Menarche at age 15. First Full-Term at age 19. Hysterectomy at age 40. Postmenopausal. 1994, Benign Excisional Biopsy on the left side. Mother had breast cancer under age 50. Sister had ovarian cancer at or over age 50. Risk Values: Dianne 5 year model risk: 3.7%. NCI Lifetime model risk: 12.3%. Prior Study Comparison: 07/14/2022 Bilateral MG 3D screening mammo w/cad, [facility]. 07/21/2022 Right MG 3D work up w/cad RT, [facility]. 02/22/2024 Bilateral MG 3D diag mammo w/cad NU, [facility]. Findings: A complete US of all four quadrants of the breast, axilla, and retro-areolar region were reviewed. At the 4:00 position left breast 17 cm from the nipple, there is an irregular oval mass measuring 1.6 x 1.3 x 0.9 cm. Punctate calcification is suggested with the mammographic abnormality. At the 11:00 position, 10 cm from the nipple located deep, there is a circumscribed oval hypoechoic lesion measuring 1.5 x 1.4 x 0.7 cm. No other solid or cystic lesion or axillary lymphadenopathy. Overall Assessment: Highly suggestive of malignancy, BI-RAD 5 Management: Ultrasound Core Biopsy of the left breast. 2 sites. We are deferring the stereotactic core needle biopsy at this time. Results were given to the patient verbally at the time of exam. Electronically signed and approved by: Rahul De Los Santos M.D. Radiologist [facility]
--- NOTE | 2024-03-15 14:29 | MM ---
EXAM: US biopsy breast VAD LT, MG diagnostic mammo LT wo CAD DATE OF EXAM: 03/07/2024 COMPARISON: DESCRIPTION: The procedure of ultrasound guided core biopsy was explained to the patient. Benefits, alternatives, and risks were discussed. An informed consent was then obtained. Rescanning again demonstrates the suspicious lesion at the 4:00 position which is targeted for biopsy. On the rescan, the questioned 1.4 cm oval hypoechoic lesion appears to correspond to anterior, parasternal rib cartilage. No biopsy is performed here at 11:00. The patient was placed in supine positioning for imaging and for the procedure. The overlying skin was prepped and draped in usual sterile fashion. Lidocaine was used as anesthetic into the skin and subcutaneous tissue up to area of concern in the 4:00 left breast. Under ultrasound guidance, a 13-gauge vacuum-assisted Mammotome Elite biopsy gun was used to obtain 5 core samples. Following this, a butterfly clip was left in lesion. The patient tolerated the procedure well without any immediate complication. The patient was kept in the radiology department for short stay after the procedure and then discharged home in stable condition. Postprocedure mammogram: The patient was transferred to mammography for physician ordered post procedure mammogram for clip placement verification. Postprocedure mammogram shows clip at the site of mass and associated calcifications. Calcifications have decreased in keeping with successful vacuum biopsy. IMPRESSION: Successful, uncomplicated ultrasound guided core biopsy of suspicious posterior 4:00 mass left breast; full pathology results to follow. Pathology Results: Malignant Pathology and radiology were reviewed. Findings are concordant. LEFT BREAST, FOUR O'CLOCK, ULTRASOUND GUIDED NEEDLE CORE BIOPSY: Invasive poorly differentiated ductal carcinoma (Grade 3). See Surgical Pathology Cancer Case Summary. Recommendation Surgical consult of the left breast. JEANIED
== END ==
LOC: RADUSWWP 10:32
PROVIDERS: ATTEND Surgery
DX: N63.23 Unspecified lump in the left breast, lower outer quadrant (principal); R92.8 Other abnormal and inconclusive findings on diagnostic imaging of breast
CPT/HCPCS: 88305; 88342; 88341; 77065; 19083; 76642; A4648

== ENCOUNTER → 2024-03-13 | Outpatient (CLI) | payer MEDICARE, OTHER ==
[2024-03-13 09:54] VITALS: BP 156/67; PULSE 59; RESP 17; TEMP 98.2
--- NOTE | 2024-03-13 10:57 | P.GSCN ---
History of Present Illness Consult date: 03/13/24 Reason for Consult: biopsy proven left breast cancer [id number] Requesting physician: James Blanca History of present illness: Nellie is a 69 year old female seen in consultation for Dr. Blanca regarding a biopsy-proven left breast invasive ductal carcinoma. She underwent a bilateral screening mammogram on 2323. She did not feel any lumps masses or nodules of concern in either breast. There were noted to be a new segmental density in the posterior left breast with multiple punctate calcifications associated with the area new from her comparison study of July 2022. Biopsy was recommended. In the right breast no lumps masses or nodules of concern were identified. The screening mammogram was followed by a left breast ultrasound. On the left breast ultrasound performed on 03-07-2024 at the 4 o'clock position there was noted to be a 1.6 x 0.9 cm lesion and at the 11 o'clock position there was noted to be a 1.5 x 0.7 cm lesion. This was considered BI-RADS 5 and ultrasound core biopsy of both sites were recommended. Ultrasound core biopsy of the 4:00 site was performed on the same date however the 11:00 site was not sampled. The 4:00 site revealed a grade 3 invasive ductal carcinoma which was ER/VA negative and HER2 positive. The patient had a right breast biopsy in the past which was (-), this was about 30 years ago. Self does not feel any new lumps masses or nodules of concern in either breast. She has not complained of any nipple discharge. She is not complaining of any recent trauma or infection in the breast. Caffeine: 1/2 cup/day nicotine: none chocolate: occasional BCP: used many years ago for about 2 weeks hormones: none Family History: mother: breast cancer at 63 sister: ovarian cancer at 61 ? genetic testing Hormonal History: menarche: 15 one at , age at first birthL 21, breast fed: no menopause: 42 Surgical History: knee surgery trigger finger partial hysterectomy (left ovaries) gallbladder Medical History: diabetes HTN high cholesterol nerves gabapentene neuropathy in her feet Social History: Nicotine: Negative Alcohol: Negative Drugs: Negative Review of Systems - Constitutional Denies fever, Denies weight loss - EENT Eyes: denies blurred vision Ears: deny: decreased hearing, tinnitus Ears, nose, mouth and throat: Denies dysphagia - Breasts bilateral: as per HPI - Cardiovascular Denies chest pain, Denies shortness of breath - Respiratory Denies cough, Denies 7 - Gastrointestinal Reports as per HPI - Genitourinary Genitourinary: Denies dysuria, Denies hematuria Menstruation: Reports postmenopausal - Musculoskeletal Reports myalgias - Integumentary Denies rash, Denies unusual bruising - Neurological Denies headaches, Denies syncope - Psychiatric Reports anxiety, Reports depression - Endocrine Reports as per HPI - Allergic/Immunologic Reports as per HPI Past Medical History Past Medical History: Diabetes Mellitus, Hyperlipidemia, Hypertension, Osteoarthritis (OA) Additional Past Medical History / Comment(s): Neuropathy in feet History of Any Multi-Drug Resistant Organisms: None Reported Past Surgical History: Hysterectomy, Orthopedic Surgery Additional Past Surgical History / Comment(s): Arthoscopic right knee. Trigger finger bilat hands with surgery Past Anesthesia/Blood Transfusion Reactions: No Reported Reaction - Sexual Orientation/Gender Identity What was your sex assigned at ?: Female Preferred Pronoun: She/Her/Hers Do you identify as transgender: No How would you describe your gender identity?: Woman Do you think of your sexual orientation as: Straight/Heterosexual Past Psychological History: Anxiety, Depression Additional Psychological History / Comment(s): xanax as needed for anxiety Smoking Status: Never smoker Past Alcohol Use History: None Reported Past Drug Use History: None Reported Medications and Allergies Home Medications Medication Instructions Recorded Confirmed Type HYDROcodone/APAP 7.5-325MG [[place] 1 tab PO Q6HR PRN 03/27/20 03/13/24 History 7.5-325] metFORMIN HCL [Glucophage] 1,000 mg PO DAILY 03/27/20 03/13/24 History Atorvastatin [Lipitor] 20 mg PO HS 08/11/22 03/13/24 History Aspirin [Adult Low Dose Aspirin EC] 81 mg PO DAILY 06/28/23 03/13/24 History Dapagliflozin Propanediol [Farxiga] 5 mg PO DAILY 06/28/23 03/13/24 History Diclofenac Sodium 50 mg PO BID 06/28/23 03/13/24 History Gabapentin 800 mg PO TID 06/28/23 03/13/24 History ALPRAZolam [Xanax] 0.25 mg PO BID PRN 02/23/24 03/13/24 History Losartan [Cozaar] 25 mg PO DAILY 02/23/24 03/13/24 History Pioglitazone [Actos] 15 mg PO DAILY 02/23/24 03/13/24 History Allergies Allergy/AdvReac Type Severity Reaction Status Date / Time No Known Allergies Allergy Unverified 03/13/24 09:51 Surgical - Exam Vital Signs Temp Pulse Resp BP Pulse Ox 98.2 F 59 L 17 156/67 98 03/13/24 09:52 03/13/24 09:52 03/13/24 09:52 03/13/24 09:52 03/13/24 09:52 - General moderate distress - Eyes normal ocular movement - Neck trachea midline - Respiratory normal respiratory effort, clear to auscultation - Cardiovascular Rhythm: regular Heart Sounds: normal: S1, S2 - Abdomen Abdomen: soft, non tender, no guarding, no rigid, no rebound - Integumentary normal turgor - Musculoskeletal normal gait - Psychiatric oriented to time, oriented to person, oriented to place, speech is normal, memory intact Breast Exam: BRA: 42C Inspection: Bilateral grade 3 ptosis Palpation: Right breast: Multi positional exam no dominant masses or nodules of concern Right axilla: No adenopathy of concern Left breast: Multi positional exam in the 4 o'clock position there is a Steri- Strip where she has had a recent core biopsy and there is some slight fullness in the region which is approximately 2 cm in size, there is no evidence of any infection or hematoma no other dominant masses or nodules of concern are appreciated, particular attention to the 11 o'clock position did not reveal any discrete masses Left axilla: No adenopathy of concern Results Ultrasound personally reviewed with Dr. Hernandez, there is an additional 11:00 le db which was not sampled in the left breast and further evaluation of this is recommended. Assessment and Plan Assessment: Impression: Left breast invasive ductal carcinoma T2 N0 M0 ER negative VA negative HER2 positive G3; 4 o'clock position 11 o'clock position radiographic abnormality left breast which has not been sampled Diabetes Arthritis High cholesterol Plan: Further evaluation of the left breast via a ultrasound-guided core biopsy of the 11:00 lesion Consider MRI Presentation of case at tumor board CC: Dr. Burris
== END ==
LOC: WWCWWP 09:17
PROVIDERS: ATTEND Surgery
DX: R92.1 Mammographic calcification found on diagnostic imaging of breast (principal); C50.512 Malignant neoplasm of lower-outer quadrant of left female breast; E11.9 Type 2 diabetes mellitus without complications; M19.90 Unspecified osteoarthritis, unspecified site; E78.00 Pure hypercholesterolemia, unspecified; Z17.0 Estrogen receptor positive status [ER+]; Z79.84 Long term (current) use of oral hypoglycemic drugs; Z80.3 Family history of malignant neoplasm of breast

== ENCOUNTER → 2024-03-27 | Outpatient (CLI) | payer MEDICARE, OTHER ==
--- NOTE | 2024-03-28 12:38 | CA ---
Transthoracic Echo Report Name: Nellie Griffin Age: 69 Gender: F : 1955 Exam Date: 03/27/2024 14:35 Exam Location: [place] [facility] Ht (in): 64 Wt (lb): 222 Ordering Physician: Stephen Ayala MD Attending/Referring Phys: [employer]ist Roxann Herrera RDCS Procedure CPT: Indications: Z01.818 pre chemo Cardiac Hx: Technical Quality: Fair Contrast 1: Total Dose (mL): Contrast 2: Total Dose (mL): MEASUREMENTS (Male / Female) Normal Values 2D ECHO LV Diastolic Diameter PLAX 3.3 cm 4.2 - 5.9 / 3.9 - 5.3 cm LV Systolic Diameter PLAX 2.3 cm IVS Diastolic Thickness 1.4 cm 0.6 - 1.0 / 0.6 - 0.9 cm LVPW Diastolic Thickness 1.2 cm 0.6 - 1.0 / 0.6 - 0.9 cm LV Relative Wall Thickness 0.8 LA Volume 60.4 cm??? 18 - 58 / 22 - 52 cm??? LA Volume Index 27.7 cm???/m??? 16 - 28 cm???/m??? M-MODE Aortic Root Diameter MM 2.1 cm LA Systolic Diameter MM 4.4 cm LA Ao Ratio MM 2.1 AV Cusp Separation MM 1.4 cm DOPPLER AV Peak Velocity 157.1 cm/s AV Peak Gradient 9.9 mmHg AV Mean Velocity 110.8 cm/s AV Mean Gradient 5.3 mmHg AV Velocity Time Integral 36.7 cm LVOT Peak Velocity 101.0 cm/s LVOT Peak Gradient 4.1 mmHg LVOT Velocity Time Integral 24.6 cm MV Area PHT 2.9 cm??? Mitral E Point Velocity 93.0 cm/s Mitral A Point Velocity 90.7 cm/s Mitral E to A Ratio 1.0 MV Deceleration Time 261.9 ms MV E' Velocity 7.3 cm/s Mitral E to MV E' Ratio 12.7 TR Peak Velocity 298.7 cm/s TR Peak Gradient 35.7 mmHg Right Ventricular Systolic Press 39.5 mmHg FINDINGS Left Ventricle Moderately increased left ventricular wall thickness. Left ventricular cavity size normal. Normal left ventricular systolic function with no obvious regional wall motion abnormalities. Left ventricular ejection fraction is estimated at 50-55 %. Borderline left heart strain, GLS is 17.2. Right Ventricle Normal right ventricular size and function. Mild pulmonary hypertension. Right Atrium Normal right atrial size. Left Atrium Mildly increased left atrial volume. Mildly increased left atrial area. Mitral Valve Structurally normal mitral valve. Mitral valve thickened. Mild mitral annular calcification. Mild mitral regurgitation. Aortic Valve Trileaflet aortic valve. No aortic valve stenosis or regurgitation. Aortic valve sclerosis. Tricuspid Valve Structurally normal tricuspid valve. [id number] tricuspid regurgitation. Pulmonic Valve Structurally normal pulmonic valve. Pericardium No pericardial effusion. Aorta Normal size aortic root and proximal ascending aorta. CONCLUSIONS LVEF 55 to 60% Moderate asymmetrical septal hypertrophy. No obvious regional wall motion abnormality GLS estimated at -17.2% (Normal -20.0%) Normal RV size and function. RVSP elevated at 39 mmHg Mild mitral valve calcification and thickening with mild MR. Aortic valve sclerosis but no stenosis Mild to moderate TR Previewed by: Dr Delano Berg (Electronically Signed) Final Date: 28 March 2024 12:38
== END | disposition home or self-care (01) ==
LOC: RADECHMAIN 14:25
PROVIDERS: ATTEND Internal Medicine Hematology & Oncology
DX: Z01.818 Encounter for other preprocedural examination (principal); I36.1 Nonrheumatic tricuspid (valve) insufficiency; I35.8 Other nonrheumatic aortic valve disorders; I34.89 Other nonrheumatic mitral valve disorders; I34.0 Nonrheumatic mitral (valve) insufficiency; I51.7 Cardiomegaly
CPT/HCPCS: 93306

== ENCOUNTER → 2024-03-29 | Outpatient (CLI) | payer MEDICARE, OTHER ==
[2024-03-29 14:57] VITALS: BP 134/71; PULSE 52; RESP 16; TEMP 97.7
--- NOTE | 2024-03-29 15:13 | P.PN ---
Subjective Progress Note Date: 03/29/24 Principal diagnosis: left breast invasive ductal cancer History of Present Illness Consult date: 03/29/24 Reason for Consult: biopsy proven left breast cancer [id number] Requesting physician: James Blanca History of present illness: Nellie is a 69 year old female seen in consultation for Dr. Blanca regarding a biopsy-proven left breast invasive ductal carcinoma. She underwent a bilateral screening mammogram on 2323. She did not feel any lumps masses or nodules of concern in either breast. There were noted to be a new segmental density in the posterior left breast with multiple punctate calcifications associated with the area new from her comparison study of July 2022. Biopsy was recommended. In the right breast no lumps masses or nodules of concern were identified. The screening mammogram was followed by a left breast ultrasound. On the left breast ultrasound performed on 03-07-2024 at the 4 o'clock position there was noted to be a 1.6 x 0.9 cm lesion and at the 11 o'clock position there was noted to be a 1.5 x 0.7 cm lesion. This was considered BI-RADS 5 and ultrasound core biopsy of both sites were recommended. Ultrasound core biopsy of the 4:00 site was performed on the same date however the 11:00 site was not sampled. The 4:00 site revealed a grade 3 invasive ductal carcinoma which was ER/[place]I negative and HER2 positive. The patient had a right breast biopsy in the past which was (-), this was about 30 years ago. Self does not feel any new lumps masses or nodules of concern in either breast. She has not complained of any nipple discharge. She is not complaining of any recent trauma or infection in the breast. 1. Genetic testing: pending 2. Presentation of case at tumor board done on 03-26-24; also discussed with Dr. Ayala felt to be ready for surgery 3. Ultrasound-guided core biopsy 11:00 left breast lesion; cancelled as per radiology as they felt the second lesion was a rib 4. Follow-up here after presentation at tumor board 5. Appointment with medical oncology done with Dr. Ayala I have discussed with the patient and her friend the stage of the tumor this is a stage IIa invasive ductal carcinoma, additionally we have discussed treatment options and that she will most likely have neoadjuvant chemotherapy. They understand and will follow-up after the above is performed. Caffeine: 1/2 cup/day nicotine: none chocolate: occasional BCP: used many years ago for about 2 weeks hormones: none Family History: mother: breast cancer at 63 sister: ovarian cancer at 61 ? genetic testing Hormonal History: menarche: 15 one at , age at first birthL 21, breast fed: no menopause: 42 Surgical History: knee surgery trigger finger partial hysterectomy (left ovaries) gallbladder Medical History: diabetes HTN high cholesterol nerves gabapentene neuropathy in her feet Social History: Nicotine: Negative Alcohol: Negative Drugs: Negative Review of Systems - Constitutional Denies fever, Denies weight loss - EENT Eyes: denies blurred vision Ears: deny: decreased hearing, tinnitus Ears, nose, mouth and throat: Denies dysphagia - Breasts bilateral: as per HPI - Cardiovascular Denies chest pain, Denies shortness of breath - Respiratory Denies cough - Gastrointestinal Reports as per HPI - Genitourinary Genitourinary: Denies dysuria, Denies hematuria Menstruation: Reports postmenopausal - Musculoskeletal Reports myalgias - Integumentary Denies rash, Denies unusual bruising - Neurological Denies headaches, Denies syncope - Psychiatric Reports anxiety, Reports depression - Endocrine Reports as per HPI - Allergic/Immunologic Reports as per HPI Past Medical History Past Medical History: Diabetes Mellitus, Hyperlipidemia, Hypertension, Osteoarthritis (OA) Additional Past Medical History / Comment(s): Neuropathy in feet History of Any Multi-Drug Resistant Organisms: None Reported Past Surgical History: Hysterectomy, Orthopedic Surgery Additional Past Surgical History / Comment(s): Arthoscopic right knee. Trigger finger bilat hands with surgery Past Anesthesia/Blood Transfusion Reactions: No Reported Reaction - Sexual Orientation/Gender Identity What was your sex assigned at ?: Female Preferred Pronoun: She/Her/Hers Do you identify as transgender: No How would you describe your gender identity?: Woman Do you think of your sexual orientation as: Straight/Heterosexual Past Psychological History: Anxiety, Depression Additional Psychological History / Comment(s): xanax as needed for anxiety Smoking Status: Never smoker Past Alcohol Use History: None Reported Past Drug Use History: None Reported Medications and Allergies Home Medications Medication Instructions Recorded Confirmed Type HYDROcodone/APAP 7.5-325MG [[place] 1 tab PO Q6HR PRN 03/27/20 03/13/24 History 7.5-325] metFORMIN HCL [Glucophage] 1,000 mg PO DAILY 03/27/20 03/13/24 History Atorvastatin [Lipitor] 20 mg PO HS 08/11/22 03/13/24 History Aspirin [Adult Low Dose Aspirin EC] 81 mg PO DAILY 06/28/23 03/13/24 History Dapagliflozin Propanediol [Farxiga] 5 mg PO DAILY 06/28/23 03/13/24 History Diclofenac Sodium 50 mg PO BID 06/28/23 03/13/24 History Gabapentin 800 mg PO TID 06/28/23 03/13/24 History ALPRAZolam [Xanax] 0.25 mg PO BID PRN 02/23/24 03/13/24 History Losartan [Cozaar] 25 mg PO DAILY 02/23/24 03/13/24 History Pioglitazone [Actos] 15 mg PO DAILY 02/23/24 03/13/24 History Allergies Allergy/AdvReac Type Severity Reaction Status Date / Time No Known Allergies Allergy Unverified 03/13/24 09:51 Objective - Vital Signs Vital signs: Vital Signs Temp 97.7 F 03/29/24 14:50 Pulse 52 L 03/29/24 14:50 Resp 16 03/29/24 14:50 BP 134/71 03/29/24 14:50 Pulse Ox 97 03/29/24 14:50 FiO2 Intake & Output 03/28/24 03/29/24 03/29/24 18:59 06:59 18:59 Weight 99.79 kg - Constitutional General appearance: Present: cooperative - EENT Eyes: Present: EOMI ENT: Present: hearing grossly normal - Neck Neck: Present: normal ROM - Respiratory Respiratory: bilateral: CTA - Cardiovascular Heart sounds: normal: S1, S2 - Gastrointestinal General gastrointestinal: Present: soft - Integumentary Integumentary: Present: normal turgor - Musculoskeletal Musculoskeletal: Present: gait normal - Psychiatric Psychiatric: Present: A&O x's 3, appropriate affect, intact judgment & insight - Additional findings Additional findings: Breast Exam: BRA: 42C Inspection: Bilateral grade 3 ptosis Palpation: Right breast: Multi positional exam no dominant masses or nodules of concern Right axilla: No adenopathy of concern Left breast: Multi positional exam in the 4 o'clock position mild fullness which is approximately 2 cm in size where she had a recent core biopsy which was positive for the invasive ductal carcinoma there is no evidence of any infection or hematoma no other dominant masses or nodules of concern are appreciated, particular attention to the 11 o'clock position did not reveal any discrete masses Left axilla: No adenopathy of concern Assessment and Plan Assessment: Impression: Left breast invasive ductal carcinoma T2 N0 M0 ER negative WI negative HER2 positive G3; 4 o'clock position 11 o'clock position radiographic abnormality left breast which has not been sampled/biopsy canceled Case presented at tumor board and discussed with Dr. Dominique patient felt to be a good candidate for surgical intervention at this time Diabetes Arthritis High cholesterol Genetic testing is pending, the patient however states that it would not affect her decision to have a lumpectomy she does not want a mastectomy Plan: Needle localization left breast lumpectomy, oncoplastic tissue transfer left, left sentinel node injection, left sentinel node biopsy, possible left axillary node dissection Preoperative clearance Dr. Blanca Risk and benefits of the procedure discussed with the patient. Risk include but are not limited to bleeding, infection, reaction to the anesthetic if the margins were to be positive she understands further tissue acquisition may be necessary. Risk of the sentinel node biopsy include bleeding, infection, reaction to the anesthetic. She may have some numbness to the inner arm. Possible injury to the thoracodorsal or long thoracic nerves which could result in winged scapula. She understands and wishes to proceed. Additionally if the radiotracer does not travel and methylene blue was used she may have some tattooing of the breast and/or tissue necrosis. She understands and wishes to proceed. CC: Dr. Burris
== END ==
LOC: WWCWWP 13:44
PROVIDERS: ATTEND Surgery
DX: R92.8 Other abnormal and inconclusive findings on diagnostic imaging of breast (principal); C50.512 Malignant neoplasm of lower-outer quadrant of left female breast; E11.9 Type 2 diabetes mellitus without complications; E78.00 Pure hypercholesterolemia, unspecified; M19.90 Unspecified osteoarthritis, unspecified site; Z17.1 Estrogen receptor negative status [ER-]; Z80.3 Family history of malignant neoplasm of breast; Z79.84 Long term (current) use of oral hypoglycemic drugs

== ENCOUNTER 2024-04-30 10:22 | Day surgery (SDC) | payer MEDICARE, OTHER ==
--- NOTE | 2024-04-26 17:24 | P.PN ---
Subjective Progress Note Date: 04/26/24 04-26-24 History of Present Illness Consult date: 03/29/24 Reason for Consult: biopsy proven left breast cancer [id number] Requesting physician: James Blanca History of present illness: Nellie is a 69 year old female seen in consultation for Dr. Blanca regarding a biopsy-proven left breast invasive ductal carcinoma. She underwent a bilateral screening mammogram on 2323. She did not feel any lumps masses or nodules of concern in either breast. There were noted to be a new segmental density in the posterior left breast with multiple punctate calcifications associated with the area new from her comparison study of July 2022. Biopsy was recommended. In the right breast no lumps masses or nodules of concern were identified. The screening mammogram was followed by a left breast ultrasound. On the left breast ultrasound performed on 03-07-2024 at the 4 o'clock position there was noted to be a 1.6 x 0.9 cm lesion and at the 11 o'clock position there was noted to be a 1.5 x 0.7 cm lesion. This was considered BI-RADS 5 and ultrasound core biopsy of both sites were recommended. Ultrasound core biopsy of the 4:00 site was performed on the same date however the 11:00 site was not sampled. The 4:00 site revealed a grade 3 invasive ductal carcinoma which was ER/[place] negative and HER2 positive. The patient had a right breast biopsy in the past which was (-), this was about 30 years ago. Self does not feel any new lumps masses or nodules of concern in either breast. She has not complained of any nipple discharge. She is not complaining of any recent trauma or infection in the breast. 1. Genetic testing: pending; patient states genetid testing results would not change her desire for a lumpectomy 2. Presentation of case at tumor board done on 03-26-24; also discussed with Dr. Ayala felt to be ready for surgery 3. Ultrasound-guided core biopsy 11:00 left breast lesion; cancelled as per radiology as they felt the second lesion was a rib 4. Follow-up here after presentation at tumor board 5. Appointment with medical oncology done with Dr. Ayala I have discussed with the patient and her friend the stage of the tumor this is a stage IIa invasive ductal carcinoma, additionally we have discussed treatment options and that she will most likely have neoadjuvant chemotherapy. They understand and will follow-up after the above is performed. Caffeine: 1/2 cup/day nicotine: none chocolate: occasional BCP: used many years ago for about 2 weeks hormones: none Family History: mother: breast cancer at 63 sister: ovarian cancer at 61 ? genetic testing Hormonal History: menarche: 15 one at , age at first birthL 21, breast fed: no menopause: 42 Surgical History: knee surgery trigger finger partial hysterectomy (left ovaries) gallbladder Medical History: diabetes HTN high cholesterol nerves gabapentene neuropathy in her feet Social History: Nicotine: Negative Alcohol: Negative Drugs: Negative Review of Systems - Constitutional Denies fever, Denies weight loss - EENT Eyes: denies blurred vision Ears: deny: decreased hearing, tinnitus Ears, nose, mouth and throat: Denies dysphagia - Breasts bilateral: as per HPI - Cardiovascular Denies chest pain, Denies shortness of breath - Respiratory Denies cough - Gastrointestinal Reports as per HPI - Genitourinary Genitourinary: Denies dysuria, Denies hematuria Menstruation: Reports postmenopausal - Musculoskeletal Reports myalgias - Integumentary Denies rash, Denies unusual bruising - Neurological Denies headaches, Denies syncope - Psychiatric Reports anxiety, Reports depression - Endocrine Reports as per HPI - Allergic/Immunologic Reports as per HPI Past Medical History Past Medical History: Diabetes Mellitus, Hyperlipidemia, Hypertension, Osteoarthritis (OA) Additional Past Medical History / Comment(s): Neuropathy in feet History of Any Multi-Drug Resistant Organisms: None Reported Past Surgical History: Hysterectomy, Orthopedic Surgery Additional Past Surgical History / Comment(s): Arthoscopic right knee. Trigger finger bilat hands with surgery Past Anesthesia/Blood Transfusion Reactions: No Reported Reaction - Sexual Orientation/Gender Identity What was your sex assigned at ?: Female Preferred Pronoun: She/Her/Hers Do you identify as transgender: No How would you describe your gender identity?: Woman Do you think of your sexual orientation as: Straight/Heterosexual Past Psychological History: Anxiety, Depression Additional Psychological History / Comment(s): xanax as needed for anxiety Smoking Status: Never smoker Past Alcohol Use History: None Reported Past Drug Use History: None Reported Medications and Allergies Home Medications Medication Instructions Recorded Confirmed Type HYDROcodone/APAP 7.5-325MG [[place] 1 tab PO Q6HR PRN 03/27/20 03/13/24 History 7.5-325] metFORMIN HCL [Glucophage] 1,000 mg PO DAILY 03/27/20 03/13/24 History Atorvastatin [Lipitor] 20 mg PO HS 08/11/22 03/13/24 History Aspirin [Adult Low Dose Aspirin EC] 81 mg PO DAILY 06/28/23 03/13/24 History Dapagliflozin Propanediol [Farxiga] 5 mg PO DAILY 06/28/23 03/13/24 History Diclofenac Sodium 50 mg PO BID 06/28/23 03/13/24 History Gabapentin 800 mg PO TID 06/28/23 03/13/24 History ALPRAZolam [Xanax] 0.25 mg PO BID PRN 02/23/24 03/13/24 History Losartan [Cozaar] 25 mg PO DAILY 02/23/24 03/13/24 History Pioglitazone [Actos] 15 mg PO DAILY 02/23/24 03/13/24 History Allergies Allergy/AdvReac Type Severity Reaction Status Date / Time No Known Allergies Allergy Unverified 03/13/24 09:51 Objective - Vital Signs Vital signs: Intake & Output 04/25/24 04/26/24 04/26/24 18:59 06:59 18:59 Weight 101.605 kg - Constitutional General appearance: Present: cooperative - EENT Eyes: Present: EOMI ENT: Present: hearing grossly normal - Neck Neck: Present: normal ROM - Respiratory Respiratory: bilateral: CTA - Cardiovascular Rhythm: regular Heart sounds: normal: S1, S2 - Integumentary Integumentary: Present: normal turgor - Musculoskeletal Musculoskeletal: Present: gait normal - Psychiatric Psychiatric: Present: A&O x's 3, appropriate affect, intact judgment & insight - Additional findings Additional findings: Breast Exam: BRA: 42C Inspection: Bilateral grade 3 ptosis Palpation: Right breast: Multi positional exam no dominant masses or nodules of concern Right axilla: No adenopathy of concern Left breast: Multi positional exam in the 4 o'clock position mild fullness which is approximately 2 cm in size where she had a recent core biopsy which was positive for the invasive ductal carcinoma there is no evidence of any infection or hematoma no other dominant masses or nodules of concern are appreciated, particular attention to the 11 o'clock position did not reveal any discrete masses Left axilla: No adenopathy of concern Assessment and Plan Assessment: Impression: Left breast invasive ductal carcinoma T2 N0 M0 ER negative NV negative HER2 positive G3; 4 o'clock position 11 o'clock position radiographic abnormality left breast which has not been sampled/biopsy canceled Case presented at tumor board and discussed with Dr. Ayala patient felt to be a good candidate for surgical intervention at this time Diabetes Arthritis High cholesterol Genetic testing is pending, the patient however states that it would not affect her decision to have a lumpectomy she does not want a mastectomy Plan: Needle localization left breast lumpectomy, oncoplastic tissue transfer left, left sentinel node injection, left sentinel node biopsy, possible left axillary node dissection Preoperative clearance Dr. Blanca Functional assessment: Arm abduction passed without difficulty Pre-op education given to the patient Risk and benefits of the procedure discussed with the patient. Risk include but are not limited to bleeding, infection, reaction to the anesthetic if the margins were to be positive she understands further tissue acquisition may be necessary. Risk of the sentinel node biopsy include bleeding, infection, reaction to the anesthetic. She may have some numbness to the inner arm. P ossible injury to the thoracodorsal or long thoracic nerves which could result in winged scapula. She understands and wishes to proceed. Additionally if the radiotracer does not travel and methylene blue was used she may have some tattooing of the breast and/or tissue necrosis. She understands and wishes to proceed. CC: Dr. Burris
[~2024-04-30 10:22] MED LIST changes: -ALPRAZolam 0.25 MG TAB PO PRN; -ALPRAZolam 0.5 MG TAB PO PRN; +HYDROmorphone 0.5 MG/0.5 ML SYRINGE IVP PRN; +MIDAZOLAM 2 MG/2 ML VIAL IV PRN
[2024-04-30 10:50] VITALS: RESP 16
[2024-04-30] MEDS: IV FLUID CONTINUATION 1,000 ML IV ONE (10:51)
[2024-04-30] MEDS: ACETAMINOPHEN TAB 500 MG TAB PO PRN (10:53)
[2024-04-30] MEDS: ONDANSETRON 4 MG/2 ML VIAL IVP ONE (10:53)
[2024-04-30] MEDS: LACTATED RINGERS 1,000 ML IV SCH (10:54)
[2024-04-30] MEDS: DEXAMETHASONE SOD PHOSPHATE 4 MG/ML 1 ML VIAL IV ONE (10:54)
[2024-04-30 11:08] LABS: Glucose,Whole Blood 153 mg/dL (70-110)
[2024-04-30] MEDS: ALPRAZolam 0.25 MG TAB PO STA (11:10)
[2024-04-30] MEDS: LIDOCAINE 1% INJ 10MG/ML (20 ML MDV) SQ ONE (11:45)
--- NOTE | 2024-04-30 13:14 | P.NAPBC ---
NAPBC Queries - NAPBC Queries Was patient's case review presented at [facility] tumor board? If no, comment.: Yes Was patient's pathology reviewed at [facility]? If no, comment.: Yes Was breast conservation surgery offered? If no, comment.: Yes Was sentinel node biopsy offered? If no, comment.: Yes Was diagnosis confirmed by percutaneous core biopsy? If no, comment.: Yes Is patient mastectomy patient?: No Was a preop referral to reconstructive surgeon offered?: No Clinical Stage: left breast IDC [id number]
--- NOTE | 2024-04-30 13:24 | NM ---
EXAMINATION TYPE: NM sentinel node injection DATE OF EXAM: 04/30/2024 COMPARISON: NONE CLINICAL INDICATION: Female, 69 years old with history of C50.912 BREAST CANCER; TECHNIQUE AND FINDINGS: The procedure of sentinel lymph node injection was explained to the patient. The benefits, alternatives, and risks were discussed. An informed consent was then obtained. Overlying skin is cleaned with sterile alcohol. Following this, 492 uCi Tc99m Tilmanocept was inject ed in the upper outer aspect of the left nipple intradermally. The patient tolerated the procedure well without any immediate complication. The patient was kept in the radiology department for short stay after the procedure and then taken to surgery for surgical p rocedure what is presumed intraoperative gamma probe will be used for sentinel lymph node detection. IMPRESSION: Left breast radiotracer injection for sentinel node localization as above.
[2024-04-30] MEDS: HEPARIN SODIUM,PORCINE 5,000 UNIT/ML 1 ML VIAL SQ PRN (13:40)
[2024-04-30] MEDS ORDERED: fentaNYL (PF) 50 MCG/ML 2 ML AMP ONE (13:49)
[2024-04-30] MEDS ORDERED: HYDROmorphone (PF) 1 MG/ML ONE (13:49)
[2024-04-30] MEDS ORDERED: PROPOFOL 10 MG/ML 20 ML VIAL IV ONE (13:49)
[2024-04-30] MEDS ORDERED: KETOROLAC 15 MG/ML 1 ML VIAL ONE (13:49)
[2024-04-30] MEDS ORDERED: MIDAZOLAM 2 MG/2 ML VIAL ONE (13:49)
[2024-04-30] MEDS ORDERED: PHENYLEPHRINE-0.9% NACL SYG 1,000 MCG/10 ML SYRINGE ONE (13:49)
[2024-04-30] MEDS ORDERED: LIDOCAINE 1% INJ 10MG/ML (20 ML MDV) ONE (13:49)
[2024-04-30] MEDS: LACTATED RINGERS 1,000 ML IV ONE ×2 (14:48→15:06)
--- NOTE | 2024-04-30 15:49 | P.BCAON ---
Date of Procedure: 04/30/24 Preoperative Diagnosis: Invasive ductal carcinoma left breast Postoperative Diagnosis: Same Procedure(s) Performed: Left breast needle localization lumpectomy, sentinel node biopsy, oncoplastic tissue transfer 120 cm Anesthesia: FINN Surgeon: Roseann Antunez Estimated Blood Loss (ml): 15 IV fluids (ml): 1,100 Pathology: other (Breast tissue, sentinel node biopsy) Condition: stable Disposition: same day Indications for Procedure: Biopsy-proven left breast invasive ductal carcinoma Operative Findings: Dense breast tissue/radiograph of specimen reveals clip as well as microcalcifications of concern Description of Procedure: The patient was first seen in the radiology department where the area of concern was bracketed. Additionally periareolar injection for sentinel node biopsy was performed. The patient was then brought to the operative suite. Following induction of anesthesia the neoprobe was used to interrogate the axilla. There was noted to be radioactivity in the axilla. The left breast and axilla were prepped and draped in a sterile fashion. Using the neoprobe the area of greatest radioactivity was identified. An incision was made over the site. The neoprobe was used to identify the lymph node of concern and the tissue was grasped. Tissue was removed. The 10-second count on the lymph node was 2545. A second area of radioactivity was identified in the axilla. This was grasped using an Allis clamp. The 10-second count on the second lymph node was 2255. No additional radioactive lymph nodes of concern were identified and no palpable lymph nodes of concern were identified. The background 10-second count was 47. After this the wound was well irrigated. The deep tissues were closed using 3-0 Vicryl suture. The skin was closed using 4-0 Monocryl. The area of the breast was approached. An incision was made just superior to the insertion of both bracketing needles. This was in the lateral aspect of the breast. This was dissected down to the tips of both needles. Posteriorly dissection was on the pectoralis muscle. The tissue was excised. The specimen was 10 cm x 8 cm. The specimen was painted for orientation. Radiograph of the specimen revealed the clip of concern was removed as well as both wires and the calcifications of concern. The wound was well irrigated. After reassured that hemostasis was attained a superior and inferior flap were developed. The superior flap was 10 x 3 cm, the inferior flap was 5 x 2 cm. Titanium clips were placed in the cavity. Surgicel in powder form was placed in the cavity. Superior and inferior pillars were brought together using 3-0 Vicryl suture. This was followed by closure of the subcutaneous tissue with 3-0 Vicryl suture. Skin was closed with 4-0 Monocryl. 10 cc of 1% lidocaine were used to anesthetize the area. The patient tolerated the procedure in stable condition. All instrument and sponge counts were correct at the end of the case. - Sentinal Node Biopsy Operation performed with curative intent: Yes Tracer(s) used in upfront surgery (non-neoadjuvant): radioactive tracer Tracer(s) used in the neoadjuvant setting: N/A All nodes present at end of dye-filled channel removed: N/A All significantly radioactive nodes were removed: Yes All palpably suspicious nodes were removed: Yes Clipped positive nodes identified and removed: N/A
[2024-04-30 16:14] VITALS: TEMP 97.6
[2024-04-30 17:02] VITALS: BP 149/76; PULSE 82
== END 2024-04-30 17:29 | disposition home or self-care (01) ==
LOC: OR 10:22
PROVIDERS: ATTEND Surgery
DX: C50.912 Malignant neoplasm of unspecified site of left female breast (principal); I10 Essential (primary) hypertension; E78.5 Hyperlipidemia, unspecified; E11.40 Type 2 diabetes mellitus with diabetic neuropathy, unspecified; N28.9 Disorder of kidney and ureter, unspecified; F41.9 Anxiety disorder, unspecified; F32.A Depression, unspecified; Z79.899 Other long term (current) drug therapy; Z79.82 Long term (current) use of aspirin
CPT/HCPCS: 76098; 19281; 38792; C1819; A9520; J2250; J1644; J1100; J0690; J2405; J2001; J3010; J1170; J1885; J2704; J2371

== ENCOUNTER → 2024-06-13 | Outpatient (CLI) | payer MEDICARE, OTHER ==
[2024-06-13 14:23] VITALS: BP 113/63; PULSE 62; RESP 17; TEMP 98.5
--- NOTE | 2024-06-13 14:30 | P.BCPO ---
Progress Note - Text Progress Note Date: 06/13/24 Nellie is a 69-year-old female status post left breast lumpectomy and sentinel node biopsy on 04-30-2024. The patient's pathology revealed a 1.6 cm tumor all margins were negative for invasive or DCIS. There was DCIS present. The patient had 5 lymph nodes removed all were negative for metastatic disease. Only a week ago and the mid medial breast that she had some swelling and erythema. She has not had any fever or chills. The incision resection is in the lateral outer breast and is clean and dry with no evidence of any infection. Breast at the area of erythema has been hot. Examination: lungs: Clear Heart: Regular rate and rhythm Left breast incision clean and dry Medial aspect of breast with swelling and erythema Impression: Patient with possible infected seroma right medial breast distant from the area of incision Plan: Attempted aspiration Course of antibiotics Follow-up next week Medical oncology and radiation oncology CC: Dr. Blanca Post Op Education - Post Op Education Post Op Education Provided Date: 06/13/24 - Functional Assessment Performed?: Yes Referal Provided?: No (arm abduction passed with) Path Report - Was patient given path report? Path Report Date Given: 05/30/24
== END ==
LOC: WWCWWP 14:13
PROVIDERS: ATTEND Surgery
DX: Z48.817 Encounter for surgical aftercare following surgery on the skin and subcutaneous tissue (principal); L76.33 Postprocedural seroma of skin and subcutaneous tissue following a dermatologic procedure; N63.20 Unspecified lump in the left breast, unspecified quadrant; Z85.3 Personal history of malignant neoplasm of breast

== ENCOUNTER → 2024-06-21 | Outpatient (CLI) | payer MEDICARE, OTHER ==
--- NOTE | 2024-06-21 11:43 | P.PN ---
Subjective Progress Note Date: 06/21/24 Progress Note - Text Progress Note Date: 06/13/24 Nellie is a 69-year-old female status post left breast lumpectomy and sentinel node biopsy on 04-30-2024. The patient's pathology revealed a 1.6 cm tumor all margins were negative for invasive or DCIS. There was DCIS present. The patient had 5 lymph nodes removed all were negative for metastatic disease. About 2 weeks ago in the mid medial breast she had some swelling and erythema. She had not had any fever or chills. The incision resection is in the lateral outer breast and is clean and dry with no evidence of any infection. Breast at the area of erythema had been warm to touch as per the patient. On 06-13-24 Following informed consent the area of fluctuance in the left breast was prepped using alcohol. An 18-gauge needle on a 20 cc syringe was used to aspirate 250cc of serosanguineous fluid. The patient was placed on Keflex 500 mg 1 p.o. 4 times daily Cultures were sent of the fluid which was removed cultures reviewed: gm stain no organisms seen; culture rare staph coag (-) no anerobes many PMN's Examination: lungs: Clear Heart: Regular rate and rhythm Left breast incision clean and dry Medial aspect of breast with swelling and erythema Impression: Medial aspect of the left breast swelling Plan: Attempt aspiration Ultrasound of the left breast Change antibiotic Follow-up next week Medical oncology and radiation oncology Left breast was prepped using alcohol. An 18-gauge needle and a 20 cc syringe was used to aspirate 5 cc of serosanguineous fluid. There was not resolution of the swelling. An ultrasound will be recommended to further evaluate this area. CC: Dr. Blanca
[2024-06-21 11:49] VITALS: BP 150/76; PULSE 60; RESP 16; TEMP 97.6
== END ==
LOC: WWCWWP 10:44
PROVIDERS: ATTEND Surgery
DX: Z48.817 Encounter for surgical aftercare following surgery on the skin and subcutaneous tissue (principal); N63.20 Unspecified lump in the left breast, unspecified quadrant; Z85.3 Personal history of malignant neoplasm of breast

== ENCOUNTER → 2024-06-28 | Day surgery (SDC) | payer MEDICARE, OTHER ==
--- NOTE | 2024-07-05 12:54 | USB ---
Prior Study Comparison: 07/21/2022 Right MG 3D work up w/cad RT, [facility]. 02/22/2024 Bilateral MG 3D diag mammo w/cad NU, [facility]. 03/07/2024 Left MG diagnostic mammo LT wo CAD., [facility]. Pathology Description: Location: 4 o'clock. The ultrasound guided cyst aspiration procedure was explained to the patient. The risks, benefits, alternatives were discussed. An informed consent was then obtained. A time out was performed. The patient was placed in supine positioning for imaging and for the procedure. The overlying skin was prepped with betadine and sterilely draped in usual sterile fashion. 8 ml 1% lidocaine was used as anesthetic into the skin and deeper breast tissue up to area of concern in the left breast Under ultrasound guidance, an 18-gauge spinal needle was advanced into the cyst and aspiration yielded 12 mL of bloody fluid. The fluid was labeled and sent for laboratory analysis. No clip was placed. Good hemostasis was obtained with direct pressure. Area aspirated was of mixed echogenicity. Multiple septations are present and the complete area cannot be fully drained. Underlying solid components are present. Consider recurrence within the differential. Postprocedure : Discharge instructions were discussed with the patient. The patient tolerated the procedure well without any immediate complication. The patient was discharged to home in stable condition. Impression: Successful ultrasound guided cyst aspiration left breast. Cytology pending. [facility], , 06/28/2024 12:27 PM. Pathology Results: Result: Benign, Abscess. Pathology and radiology were reviewed. Findings are concordant. LEFT BREAST, ASPIRATION: Abundant acute inflammation with degenerated material and foamy macrophages, likely representing abscess and fat necrosis. Negative for viable diagnostic malignancy. Overall Assessment: Benign Management: Diagnostic Breast Ultrasound of the left breast in 6 months. Electronically signed and approved by: Wallace Cervantes D.O. Radiologis
== END ==
LOC: RADUSWWP 09:40
PROVIDERS: ATTEND Surgery
DX: N60.02 Solitary cyst of left breast (principal)
CPT/HCPCS: 76942; 88173; 88305

== ENCOUNTER → 2024-07-04 | Outpatient (CLI) | payer MEDICARE, OTHER ==
[2024-07-04 15:59] VITALS: BP 101/65; PULSE 58; RESP 17; TEMP 97.8
--- NOTE | 2024-07-04 16:27 | P.PN ---
Subjective Progress Note Date: 07/04/24 07-04-24 Nellie is a 69-year-old female status post left breast lumpectomy and sentinel node biopsy on 04-30-2024. The patient's pathology revealed a 1.6 cm tumor all margins were negative for invasive or DCIS. There was DCIS present. The patient had 5 lymph nodes removed all were negative for metastatic disease. About 2 weeks ago in the mid medial breast she had some swelling and erythema. She had not had any fever or chills. The incision for her resection is in the lateral outer breast and is clean and dry with no evidence of any infection. Breast at the area of erythema had been warm to touch as per the patient. On 06-13-24 Following informed consent the area of fluctuance in the left breast was prepped using alcohol. An 18-gauge needle on a 20 cc syringe was used to aspirate 250cc of serosanguineous fluid. The patient was placed on Keflex 500 mg 1 p.o. 4 times daily Cultures were sent of the fluid which was removed The patient was seen on and at that time an attempted aspiration was performed but only 5 cc of fluid was obtained. Therefore secondary to the fullness in the area and ultrasound-guided aspiration was recommended. This was scheduled and performed on 06-28-2024. cultures reviewed: gm stain no organisms seen; culture rare staph coag (-) no anerobes many PMN's The patient had ultrasound-guided attempted aspiration on 06-28-2024, as per the patient only 12 cc were removed. The specimen was sent for pathology abundant acute inflammation with degenerated material and foamy macrophages, possible abscess or fat necrosis. Negative for any malignancy. Since that time the patient's erythema has resolved. She does not have any fever or chills. Examination: lungs: Clear Heart: Regular rate and rhythm Left breast incision clean and dry Medial aspect of the breast with resolved erythema Impression: Resolved seroma left breast Plan: Appointment with medical oncology Appointment radiation oncology Follow-up here after those appointments in 4 months CC: Dr. Blanca Objective - Vital Signs Vital signs: Vital Signs Temp 97.8 F 07/04/24 15:56 Pulse 58 L 07/04/24 15:56 Resp 17 07/04/24 15:56 BP 101/65 07/04/24 15:56 Pulse Ox 98 07/04/24 15:56 FiO2 Intake & Output 07/03/24 07/04/24 07/04/24 18:59 06:59 18:59 Weight 100.698 kg
== END ==
LOC: WWCWWP 15:04
PROVIDERS: ATTEND Surgery
DX: Z48.817 Encounter for surgical aftercare following surgery on the skin and subcutaneous tissue (principal); L76.33 Postprocedural seroma of skin and subcutaneous tissue following a dermatologic procedure

== ENCOUNTER → 2024-10-23 | Outpatient (CLI) | payer MEDICARE, OTHER ==
--- NOTE | 2024-10-23 12:29 | XR ---
EXAMINATION TYPE: XR chest 2V DATE OF EXAM: 10/23/2024 12:25 PM COMPARISON: Chest x-ray January 18, 2018 CLINICAL INDICATION: Female, 69 years old with history of R06.09 UNSPECIFIED ABNORMALITIES OF BREATHI NG, TECHNIQUE: Frontal and lateral views of the chest are obtained. FINDINGS: There is no focal air space opacity, pleural effusion, or pneumothorax seen. The cardiac silhouette size remains within normal limits. The osseous structures are intact. IMPRESSION: No acute cardiopulmonary process. [facility], , 10/23/2024 12:27 PM
[2024-10-23 13:18] LABS: Appearance,Urine Clear (Clear); Bilirubin,Urine Negative (Negative); Blood,Urine Negative (Negative); Color,Urine Light Yellow; Glucose,Urine (UA) 4+ (Negative); Ketones,Urine 1+ (Negative); Leukocyte Esterase,Urine Small (Negative); Mucus,Urine Rare /hpf; Nitrite,Urine Negative (Negative); PH, Urine 5.5 (5.0-8.0); Protein,Urine Negative (Negative); RBC,Urine 1 /hpf (0-5); Specific Gravity,Urine 1.021 (1.001-1.035); Squamous Epithelial Cell,Urine 8 /hpf (0-4); Urobilinogen,Urine <2.0 mg/dL (<2.0); WBC,Urine 8 /hpf (0-5)
[2024-10-23 13:26] LABS: Creatinine,Urine Random 93.9 mg/dL; Protein/Creatinine Ratio,Urine 0.075
[2024-10-23 15:02] LABS: Basophils # (A) 0.05 X 10*3/uL (0.00-0.10); Basophils % (A) 0.9 %; Eosinophils # (A) 0.04 X 10*3/uL (0.04-0.35); Eosinophils % (A) 0.7 %; HGB 14.4 g/dL (12.0-15.0); Lymphocytes # (A) 1.17 X 10*3/uL (0.90-5.00); MCH 31.6 pg (27.0-32.0); MCHC 33.5 g/dL (32.0-37.0); MCV 94.3 FL (80.0-97.0); Mean Platelet Volume 11.3 FL (9.5-12.2); Monocytes # (A) 0.42 X 10*3/uL (0.20-1.00); Monocytes % (A) 7.6 %; NRBC Per 100 WBC 0 X 10*3/uL (0.00-0.01); Neutrophils # (A) 3.86 X 10*3/uL (1.80-7.70); Neutrophils % (A) 69.4 %; Platelet Count 233 X 10*3/uL (140-440); RBC 4.56 X 10*6/uL (4.10-5.20); RDW 12.7 % (11.5-14.5); WBC 5.56 X 10*3/uL (4.50-10.00)
[2024-10-23 15:46] LABS: Erythrocyte Sedimentation Rate 12 mm/Hr (0-30)
[2024-10-23 20:26] LABS: % Iron Saturation 24.87 (12.00-45.00); Blood Urea Nitrogen 23.4 mg/dL (9.0-27.0); C Reactive Protein <0.30 mg/dL (0.00-0.80); Chloride 104 mmol/L (96-109); Chol/HDL Ratio 4.71 Ratio; Creatine Kinase 45 U/L (26-186); Glucose 118 mg/dL (70-110); Iron 96 UG/DL (50-170); LDL Cholesterol,Calculated 165.8 mg/dL (0.0-131.0); Magnesium 2.2 mg/dL (1.5-2.4); Microalbumin Creatinine Ratio <12 mg/g Cr (0-30); Phosphorus 3.9 mg/dL (2.4-5.1); Potassium 4.7 mmol/L (3.5-5.5); Sodium 141 mmol/L (135-145); Total Iron Binding Capacity 386 UG/DL (228-460); Uric Acid 4.1 mg/dL (2.9-7.7)
[2024-10-23 20:27] LABS: ALT 12 U/L (8-44); AST 14 U/L (13-35); Albumin 4.5 g/dL (3.8-4.9); Alkaline Phosphatase 78 U/L (41-126); Calcium 9.9 mg/dL (8.7-10.3); Ferritin 82.4 ng/mL (10.0-291.0); Globulin 2.5 g/dL (1.6-3.3); Total Bilirubin 0.3 mg/dL (0.3-1.2)
== END | disposition home or self-care (01) ==
LOC: LABWHC1 11:19
PROVIDERS: ATTEND Internal Medicine
DX: Z00.00 Encounter for general adult medical examination without abnormal findings (principal); I12.9 Hypertensive chronic kidney disease with stage 1 through stage 4 chronic kidney disease, or unspecified chronic kidney disease; E87.8 Other disorders of electrolyte and fluid balance, not elsewhere classified; E78.5 Hyperlipidemia, unspecified; E11.65 Type 2 diabetes mellitus with hyperglycemia; E55.9 Vitamin D deficiency, unspecified; M10.9 Gout, unspecified; N18.30 Chronic kidney disease, stage 3 unspecified; D64.9 Anemia, unspecified; M81.0 Age-related osteoporosis without current pathological fracture; R06.9 Unspecified abnormalities of breathing; R80.9 Proteinuria, unspecified
CPT/HCPCS: 36415; 71046; 80053; 80061; 81001; 82043; 82306; 82550; 82570; 82728; 83036; 83540; 83550; 83735; 83970; 84100; 84156; 84443; 84550; 85025; 85652; 86140

== ENCOUNTER → 2025-02-03 | Outpatient (CLI) | payer MEDICARE, OTHER ==
--- NOTE | 2025-02-03 10:47 | MM ---
Reason for Exam: Follow-up at short interval from prior study. Last screening mammogram was performed 12 month(s) ago. Patient History: Menarche at age 15. First Full-Term at age 19. Hysterectomy at age 40. Postmenopausal. Breast cancer, left, age 69. Breast cancer, left, age 69. 06/28/2024, Benign US breast aspiration single LT on the left side. 04/30/2024, Lumpectomy on the Left side. 04/30/2024, Malignant MG pre op needle loc LT on the left side. 03/07/2024, Malignant US biopsy breast VAD LT on the left side. 1994, Benign Excisional Biopsy on the left side. Mother had breast cancer under age 50. Sister had ovarian cancer at or over age 50. Prior Study Comparison: 07/14/2022 Bilateral MG 3D screening mammo w/cad, [facility]. 02/22/2024 Bilateral MG 3D diag mammo w/cad NU, [facility]. 03/07/2024 Left MG diagnostic mammo LT wo CAD., [facility]. Tissue Density: The breasts are heterogeneously dense, which may obscure small masses. Findings: Analyzed By CAD. Left breast surgical clips. Postsurgical changes in the left breast with multiple surgical clips present. Stable appearing lymph node present. Few scattered benign appearing oval masses. No new suspicious masses, calcifications or distortions. Overall Assessment: Probably benign, BI-RAD 3 Management: Diagnostic Mammogram of the left breast in 6 months. Results were given to the patient verbally at the time of exam. Patient should continue monthly self-breast exams. A clinical breast exam by your physician is recommended on an annual basis. This exam should not preclude additional follow-up of suspicious palpable abnormalities. Note on Dianne scores and lifetime risk: 1. A Dianne score greater than 3% is considered moderate risk. If this is the case, consider specialist referral to assess eligibility for a risk reducing agent. 2. If overall lifetime risk for the development of breast cancer is 20% or higher, the patient may qualify for future screening with alternating mammogram and breast MRI. [facility], , 02/03/2025 10:44 AM. Electronically signed and approved by: Pavan Rosenberg DO
== END | disposition home or self-care (01) ==
LOC: RADMAMWWP 10:06
PROVIDERS: ATTEND Surgery
DX: R92.333 Mammographic heterogeneous density, bilateral breasts (principal); Z85.3 Personal history of malignant neoplasm of breast; Z78.0 Asymptomatic menopausal state; Z80.3 Family history of malignant neoplasm of breast
CPT/HCPCS: 77066; G0279; 77062

== ENCOUNTER → 2025-02-07 | Outpatient (CLI) | payer MEDICARE, OTHER ==
[2025-02-07 12:28] VITALS: BP 148/71; PULSE 77; RESP 16; TEMP 98.3
--- NOTE | 2025-02-07 12:48 | P.PN ---
Subjective Progress Note Date: 02/07/25 biopsy proven left breast cancer [id number] Requesting physician: James Blanca History of present illness: Nellie is a 69 year old female seen in consultation for Dr. Blanca regarding a biopsy-proven left breast invasive ductal carcinoma. She underwent a bilateral screening mammogram on 2323. She did not feel any lumps masses or nodules of concern in either breast. There were noted to be a new segmental density in the posterior left breast with multiple punctate calcifications associated with the area new from her comparison study of July 2022. Biopsy was recommended. In the right breast no lumps masses or nodules of concern were identified. The screening mammogram was followed by a left breast ultrasound. On the left breast ultrasound performed on 03-07-2024 at the 4 o'clock position there was noted to be a 1.6 x 0.9 cm lesion and at the 11 o'clock position there was noted to be a 1.5 x 0.7 cm lesion. This was considered BI-RADS 5 and ultrasound core biopsy of both sites were recommended. Ultrasound core biopsy of the 4:00 site was performed on the same date however the 11:00 site was not sampled. The 4:00 site revealed a grade 3 invasive ductal carcinoma which was ER/IL negative and HER2 positive. The patient had a right breast biopsy in the past which was (-), this was about 30 years ago. Self does not feel any new lumps masses or nodules of concern in either breast. She has not complained of any nipple discharge. She is not complaining of any recent trauma or infection in the breast. 1. Genetic testing: negative 2. Presentation of case at tumor board done on 03-26-24; also discussed with Dr. Ayala felt to be ready for surgery/ surgery 04-30-24 3. Ultrasound-guided core biopsy 11:00 left breast lesion; cancelled as per radiology as they felt the second lesion was a rib lumpectomy SNB on 04-30-24: tumor 1.6 cm DCIS as well, all margins (-), 5 nodes (-), [id number]-[id number]+ seen on 11-08-24 for aspiration of a seroma bilateral mammogram on 02-03-25 BIRAD 3 repeat left breast mammogram in 6 months personally interpreted Caffeine: 1/2 cup/day nicotine: none chocolate: occasional BCP: used many years ago for about 2 weeks hormones: none Family History: mother: breast cancer at 63 sister: ovarian cancer at 61 ? genetic testing Hormonal History: menarche: 15 one at , age at first birthL 21, breast fed: no menopause: 42 Surgical History: knee surgery trigger finger partial hysterectomy (left ovaries) gallbladder Medical History: diabetes HTN high cholesterol nerves gabapentene neuropathy in her feet Social History: Nicotine: Negative Alcohol: Negative Drugs: Negative Review of Systems - Constitutional Denies fever, Denies weight loss - EENT Eyes: denies blurred vision Ears: deny: decreased hearing, tinnitus Ears, nose, mouth and throat: Denies dysphagia - Breasts bilateral: as per HPI - Cardiovascular Denies chest pain, Denies shortness of breath - Respiratory Denies cough - Gastrointestinal Reports as per HPI - Genitourinary Genitourinary: Denies dysuria, Denies hematuria Menstruation: Reports postmenopausal - Musculoskeletal Reports myalgias - Integumentary Denies rash, Denies unusual bruising - Neurological Denies headaches, Denies syncope - Psychiatric Reports anxiety, Reports depression - Endocrine Reports as per HPI - Allergic/Immunologic Reports as per HPI Past Medical History Past Medical History: Diabetes Mellitus, Hyperlipidemia, Hypertension, Osteoarthritis (OA) Additional Past Medical History / Comment(s): Neuropathy in feet History of Any Multi-Drug Resistant Organisms: None Reported Past Surgical History: Hysterectomy, Orthopedic Surgery Additional Past Surgical History / Comment(s): Arthoscopic right knee. Trigger finger bilat hands with surgery Past Anesthesia/Blood Transfusion Reactions: No Reported Reaction - Sexual Orientation/Gender Identity What was your sex assigned at ?: Female Preferred Pronoun: She/Her/Hers Do you identify as transgender: No How would you describe your gender identity?: Woman Do you think of your sexual orientation as: Straight/Heterosexual Past Psychological History: Anxiety, Depression Additional Psychological History / Comment(s): xanax as needed for anxiety Smoking Status: Never smoker Past Alcohol Use History: None Reported Past Drug Use History: None Reported Medications and Allergies Home Medications Medication Instructions Recorded Confirmed Type HYDROcodone/APAP 7.5-325MG [[place] 1 tab PO Q6HR PRN 03/27/20 03/13/24 History 7.5-325] metFORMIN HCL [Glucophage] 1,000 mg PO DAILY 03/27/20 03/13/24 History Atorvastatin [Lipitor] 20 mg PO HS 08/11/22 03/13/24 History Aspirin [Adult Low Dose Aspirin EC] 81 mg PO DAILY 06/28/23 03/13/24 History Dapagliflozin Propanediol [Farxiga] 5 mg PO DAILY 06/28/23 03/13/24 History Diclofenac Sodium 50 mg PO BID 06/28/23 03/13/24 History Gabapentin 800 mg PO TID 06/28/23 03/13/24 History ALPRAZolam [Xanax] 0.25 mg PO BID PRN 02/23/24 03/13/24 History Losartan [Cozaar] 25 mg PO DAILY 02/23/24 03/13/24 History Pioglitazone [Actos] 15 mg PO DAILY 02/23/24 03/13/24 History Allergies Allergy/AdvReac Type Severity Reaction Status Date / Time No Known Allergies Allergy Unverified 03/13/24 09:51 Objective - Vital Signs Vital signs: Vital Signs Temp 98.3 F 02/07/25 12:26 Pulse 77 02/07/25 12:26 Resp 16 02/07/25 12:26 BP 148/71 02/07/25 12:26 Pulse Ox 98 02/07/25 12:26 FiO2 Intake & Output 02/06/25 02/07/25 02/07/25 18:59 06:59 18:59 Weight 91.626 kg - Constitutional General appearance: Present: cooperative - EENT Eyes: Present: edentulous ENT: Present: hearing grossly normal - Neck Neck: Present: normal ROM - Respiratory Respiratory: bilateral: CTA - Cardiovascular Rhythm: regular Heart sounds: normal: S1, S2 - Integumentary Integumentary: Present: normal turgor - Musculoskeletal Musculoskeletal: Present: gait normal - Psychiatric Psychiatric: Present: A&O x's 3, appropriate affect, intact judgment & insight - Additional findings Additional findings: Breast Exam: BRA: 42C Inspection: Bilateral grade 3 ptosis Palpation: Right breast: Multi positional exam no dominant masses or nodules of concern Right axilla: No adenopathy of concern Left breast: post surgical changes no dominate masses or nodules of concern otherwise Left axilla: No adenopathy of concern Assessment and Plan Assessment: Impression: left breast [id number] bilateral mammogram 02-03-25 BIRAD 3; repeat left bresat mammogram in 6 months Plan: Appointment medical oncology Appointment radiation oncology Follow-up here in 6 months Follow-up sooner any questions or concerns CC: Dr. Garcia
== END ==
LOC: WWCWWP 12:17
PROVIDERS: ATTEND Surgery
DX: C50.912 Malignant neoplasm of unspecified site of left female breast (principal); Z17.31 Human epidermal growth factor receptor 2 positive status